=== PATIENT | male | born 1975 | race Caucasian/White ===

== ENCOUNTER 2023-01-21 06:34 | Outpatient (OUT) | payer OTHER, SELFPAY ==
[2023-01-21 06:58] LABS: Hematocrit 36.4 % (42.0-54.0); Hemoglobin 12.5 g/dL (14.0-18.0); Mean Corpuscular HGB Conc 34.3 g/dL (29.9-35.2); Mean Corpuscular Hemoglobin 30.6 pg (25.9-34.0); Mean Platelet Volume 10.4 fL (9.5-13.5); Platelet Count 248 10^3/uL (150-450); Red Blood Count 4.09 10^6/uL (4.70-6.10); Red Cell Distribution Width 12.5 % (11.0-15.0); White Blood Count 13.4 10^3/uL (4.0-11.0)
[2023-01-21 07:45] LABS: Alanine Aminotransferase 32 U/L (16-63); Albumin Globulin Ratio 1.2; Albumin Level 3.7 g/dL (3.4-5.0); Alkaline Phosphatase 42 U/L (46-116); Anion Gap 12.4; Aspartate Amino Transferase 18 U/L (15-37); BUN Creatinine Ratio 16.2; Bilirubin Total 1.3 mg/dL (0.2-1.0); Calcium 8.9 mg/dL (8.5-10.1); Carbon Dioxide 27.1 mmol/L (21.0-32.0); Chloride 103 mmol/L (98-107); Chol HDL Ratio 3.9; Cholesterol 153 mg/dL (<=200); Estimated GFR (African America >60 (>=60); Estimated GFR (Non-African Ame >60 (>=60); Globulin 3.2 g/dL; Glucose 84 mg/dL (74-106); HDL Cholesterol 39 mg/dL (40-60); Potassium 3.5 mmol/L (3.5-5.1); Sodium 139 mmol/L (136-145); Total Protein 6.9 g/dL (6.4-8.2); Triglycerides 113 mg/dL (<=150); Uric Acid 5.2 mg/dL (3.5-7.2); VLDL CHOLESTEROL 22.6 mg/dL
[2023-01-21 07:49] LABS: Lymphocytes Absolute Manual 6.16 10^3/uL (1.20-3.80); Monocytes Absolute Manual 0.67 10^3/uL (0.30-0.80); Segmented Neut Absolute Manual 6.16 10^3/uL (1.4-6.5)
[2023-01-21 07:55] LABS: Estimated Average Glucose 111 mg/dL; Glycohemoglobin A1C 5.5 % (4.5-6.2)
[2023-01-21 08:30] LABS: Prostate Specific Antigen Scrn 0.25 ng/mL (<=4.00)
[2023-01-22 11:09] LABS: Insulin 5.7 uIU/mL (2.6-24.9)
== END 2023-01-21 06:35 | disposition home or self-care (01) ==
LOC: LAB 06:38
PROVIDERS: PCP Nurse Practitioner Family; Visit Provider Nurse Practitioner Family
DX: Z00.00 Encounter for general adult medical examination without abnormal findings (principal); Z12.5 Encounter for screening for malignant neoplasm of prostate
CPT/HCPCS: 36415; 80053; 80061; 83036; 83525; 84550; 85027; G0103

== ENCOUNTER 2023-10-05 14:49 | Outpatient (OUT) | payer OTHER, SELFPAY ==
--- NOTE | 2023-10-05 14:51 | CT_ITS ---
The [address] [address] Patient Name: MARCELO LOCKHART MRN: [id number] date: 1975 Sex: M Assigned Patient Location: CT Current Patient Location: Accession/Order Number: [id number] Exam Date: 10/05/2023 14:55 Report Date: 10/06/2023 04:06 At the request of: STACIA WONG Procedure: CT sinus wo con EXAM: CT sinus wo con HISTORY: Chronic Sinus Complaints R09.89 INDICATION: 47 years old; Male. TECHNIQUE: CT examination of the paranasal sinuses. Axial, coronal and sagittal reformats were reviewed. IV contrast (Isovue-370): None. Ionizing radiation dose reduced via iterative reconstruction/FBP blend and body size kV/mA adjustment. COMPARISON: None FINDINGS: POSTOPERATIVE CHANGES: None. ANTERIOR COMPARTMENT: Frontal sinuses: Almost complete opacification the left. Thickening on the right. Anterior ethmoid air cells: Thickening bilaterally. Worse on the left than the right. Frontoethmoidal recesses: Patent bilaterally. Maxillary sinus: Thickening with cyst or polyp formation bilaterally. Ostiomeatal units: Patent bilaterally. POSTERIOR COMPARTMENT: Sphenoid sinuses: Thickening bilaterally. Posterior ethmoid air cells: Thickening bilaterally. Sphenoethmoidal recesses: Patent bilaterally. NASAL CAVITY: Nasal turbinates: Normal in appearance. Nasal septum: Position of the midline. Small spur projects to the right. Olfactory recess: Clear. DEVELOPMENTAL ANOMALIES: Fovea ethmoidalis: Symmetric. Vertical petrous carotid arteries: Covered by bone. Optic nerves: The optic nerves projecting to the superior aspect of the sphenoid sinuses but are covered by bone. MISCELLANEOUS: Globes, orbits, and visualized brain: No orbital masses are appreciated. Only a portion of the brain is included. No mass effect is seen. Incidental note is made of a cavum septum pellucidum and vergae. This study cannot exclude all brain pathology. Visualized cervical spine: Only the C1-2 articulation is visible. Predental space is normal. The study is not clear the cervical spine. OTHER: None. CT/CT sinus wo con IMPRESSION: 1. Pansinus thickening. No fluid levels. 2. Ostiomeatal complexes, frontoethmoidal recesses, and sphenoethmoidal recesses are patent. Electronically authenticated by: SANDRA SHARP Date: 10/06/2023 04:06
--- OUTSIDE RECORDS SUMMARY | 2023-10-05 14:54 | XMS_ITS | CCD ---
Author Organization [facility] Care Team Providers Care Delivery Room Clerk Name Role Phone Vitor RITCHIE, Ayan Primary Care Provider MISC, DOCTOR Admitting Unavailable MISC, DOCTOR Attending Unavailable MISC, DOCTOR Consulting Unavailable MISC, DOCTOR Admitting Unavailable MISC, DOCTOR Attending Unavailable MISC, DOCTOR Consulting Unavailable Vitor RITCHIE, Ayan Primary Care Provider [phone] AYAN ADLER Referring Unavailable AYAN ADLER Primary Care Unavailable AYAN ADLER Primary Care Unavailable RIVERA KAUR Attending Unavailable Medications Current Medications Medication Drug Class(es) Dates Sig (Normalized) Sig (Original) baclofen 10 mg oral tablet (1 source) gamma-Aminobutyric Acid-ergic Agonist Start: 2 baclofen (LIORESAL) 10 MG tablet 2 tablets 3 times a day as needed for spasm 30 tablet 0 08/28/2021 Active doxycycline hyclate 100 mg oral capsule (1 source) Tetracycline-class Drug take 1 capsule by mouth twice daily doxycycline hyclate (VIBRAMYCIN) 100 MG capsule Take 100 mg by mouth 2 times daily 0 Active ketorolac tromethamine 10 mg oral tablet (1 source) Nonsteroidal Anti-inflammatory Drug, Cyclooxygenase Inhibitor Start: 2 take 1 tablet by mouth every eight hours as needed for pain ketorolac (TORADOL) 10 MG tablet Take 1 tablet by mouth every 8 hours as needed for Pain 15 tablet 0 08/28/2021 Active methylPREDNISolone 4 mg oral tablet (1 source) Corticosteroid methylPREDNISolo ne (MEDROL, JOSE,) 4 MG tablet Take 4 mg by mouth See Admin Instructions Take by mouth. 0 Active Problems Active Problems Problem Classification Problem Date Documented Date Episodic/Chronic Diseases of white blood cells (2 sources) Lymphocytosis (symptomatic); Translations: [Lymphocytosis (symptomatic)] Onset: 01-15-2022 Chronic Other lower respiratory disease (1 source) Snoring; Translations: [SNORING] Onset: 11-26-2021 Episodic Other nutritional; endocrine; and metabolic disorders (2 sources) Lipoprotein deficiency; Translations: [Lipoprotein deficiency] Onset: 01-15-2022 Chronic Residual codes; unclassified (4 sources) Obstructive sleep apnea (adult) (pediatric); Translations: [OBSTRUCTIVE SLEEP APNEA] Onset: 11-24-2021 Chronic Past or Other Problems Problem Classification Problem Date Documented Da te Episodic/Chronic Spondylosis; intervertebral disc disorders; other back problems (2 sources) Backache; Translations: [Back Pain] Onset: 08-28-2021 Episodic Results Test Name Value Interpretation Reference Range Facility Prost Spec Ag,Freeon 022 PSA, Free <0.1 Normal [facility] Comment on above: Performed By: #### P SAF, FT4, LIPR ####[address] [id number] Lab Director: Nir Mckeon MD#### CK, CP, MG, URI, CDP, TSH ####[address] [place] [address] lab Director: James Fay MD PSA, Percent Free 20.0 % Normal [facility] Comment on above: Result Comment: The free PSA percentage is an aid in distinguishing prostate cancer from benign prostatic conditions in men age 50 and older with a total PSA between 3 and 10 ng/mL and negative digital rectal examination findings. Performed By: #### P SAF, FT4, LIPR ####[facility] [id number] [place], [place] [address] Lab Director: Nir Mckeon MD#### CK, CP, MG, URI, CDP, TSH ####[address] [place] [address] lab Director: James Fay MD Prostatic Spec. Ag 0.2 ug/L Normal 0.0-4.0 [facility] Comment on above: Result Comment: Siem[employer]ite 2000 immunometric chemiluminescent assay is used. Results obtained with different assay methods or instruments cannot be used interchangeably. Performed By: #### P SAF, FT4, LIPR ####[facility] [id number] [place] [address] Lab Director: Nir Mckeon MD#### CK, CP, MG, URI, CDP, TSH ####[address] [place], [place] [id number] Lab Director: James Fay MD Lipid Profileon 01-16-2022 Cholesterol [Mass/Vol] 146 mg/dL Normal <200 [facility] Comment on above: Result Comment: Cholesterol Guidelines: <200 Desirable 200-240 Borderline >240 Undesirable Performed By: #### P SAF, FT4, LIPR #### [id number] [place] [address] Motorboat Mechanic: Nir Mckeon MD #### CK, CP, MG, URI, CDP, TSH #### [address] [place] [address] Motorboat Mechanic: James Fay MD Cholesterol in HDL [Mass/Vol] 37 mg/dL Low >40 [facility] Comment on above: Result Comment: HDL Guidelines: <40 Undesirable 40-59 Borderline >59 Desirable Performed By: #### P SAF, FT4, LIPR #### [id number] [place], [place] [id number] Motorboat Mechanic: Nir Mckeon MD #### CK, CP, MG, URI, CDP, TSH #### [address] [place] [address] Motorboat Mechanic: James Fay MD Cholesterol in LDL [Mass/Vol] 97 mg/dL Normal 0-130 [facility] Comment on above: Result Comment: LDL Guidelines: <100 Desirable 100-129 Near to/above Desirable 130-159 Borderline >159 Undesirable Direct (measured) LDL and calculated LDL are not interchangeable tests. Performed By: #### P SAF, FT4, LIPR #### [address] [address] Motorboat Mechanic: Nir Mckeon MD #### CK, CP, MG, URI, CDP, TSH #### [address] [place] [address] Motorboat Mechanic: James Fay MD Cholesterol.total/Choles terol in HDL [Mass ratio] 3.9 {ratio} Normal <5 [facility] Comment on above: Performed By: #### P SAF, FT4, LIPR #### [address] [address] Motorboat Mechanic: Nir Mckeon MD #### CK, CP, MG, URI, CDP, TSH #### [address] [place] [address] Motorboat Mechanic: James Fay MD Triglyceride [Mass/Vol] 60 mg/dL Normal <150 [facility] Comment on above: Result Comment: Triglyceride Guidelines: <150 Desirable 150-199 Borderline 200-499 High >499 Very high Based on AHA Guidelines for fasting triglyceride, December 2011. Performed By: #### P SAF, FT4, LIPR #### [address] [address] Motorboat Mechanic: Nir Mckeon MD #### CK, CP, MG, URI, CDP, TSH #### [address] [place] [address] Motorboat Mechanic: James Fay MD Thyroxine, Freeon 01-16-2022 Thyroxine, Free 1.18 ng/dL Normal 0.93-1.70 [facility] Comment on above: Performed By: #### P SAF, FT4, LIPR #### [address] [address] Motorboat Mechanic: Nir Mckeon MD #### CK, CP, MG, URI, CDP, TSH #### [address] [place] [address] Motorboat Mechanic: James Fay MD CBC with Auto Differentialon 01-15-2022 Absolute Eos # 0.08 [facility] [facility] Absolute Immature Granulocyte [facility] Absolute Lymph # 0.96 Low [facility] Absolute [place] # 0.51 [facility] Basophils (Bld) [#/Vol] 0.06 10*3/uL [facility] Basophils/100 WBC (Bld) 1 % 0 - 2 % [facility] Eosinophils/100 WBC (Bld) 1 % 1 - 4 % [facility] Hematocrit (Bld) [Volume fraction] 38.1 % Low 40.7 - 50.3 % [facility] Hemoglobin (Bld) [Mass/Vol] 12.9 g/dL Low 13.0 - 17.0 g/dL [facility] Immature granulocytes/100 WBC (Bld) 0 % 0 [facility] Interpretation and review of laboratory results Abnormal [facility] Lymphocytes/100 WBC (Bld) 15 % Low 24 - 43 % [facility] MCH (RBC) [Entitic mass] 30.3 pg 25. 2 - 33.5 pg [facility] MCHC (RBC) [Mass/Vol] 33.9 g/dL 28.4 - 34.8 g/dL [facility] MCV (RBC) [Entitic vol] 89.4 fL 82.6 - 102.9 fL [facility] Monocytes/100 WBC (Bld) 8 % 3 - 12 % [facility] NRBC Automated 0.0 0.0 per 100 WBC [facility] Platelet distribution width (Bld) [Ratio] 12.2 % 11.8 - 14.4 % [facility] Platelet mean volume (Bld) [Entitic vol] 10.7 fL 8.1 - 13.5 fL [facility] Platelets (Bld) [#/Vol] 154 10*3/uL [facility] RBC (Bld) [#/Vol] 4.26 10*6/uL 4.21 - 5.7 7 m/uL [facility] Segmented neutrophils/100 WBC (Bld) 75 % High 36 - 65 % [facility] Segs Absolute 4.69 [facility] WBC (Bld) [#/Vol] 6.3 10*3/uL [facility] CBC with Diffon 01-15-2022 Abs. Basophil 0.06 k/uL Normal 0.00-0.20 [facility] Comment on above: Performed By: #### P SAF, FT4, LIPR #### [address] [address] Motorboat Mechanic: Nir Mckeon MD #### CK, CP, MG, URI, CDP, TSH #### [facility] [address] [place] [address] [place] [phone] Motorboat Mechanic: James Fay MD Abs.Imm.Granulocyte <0.03 Normal 0.00-0.30 [facility] Comment on above: Performed By: #### P SAF, FT4, LIPR #### [address] [id number] Motorboat Mechanic: Nir Mckeon MD #### CK, CP, MG, URI, CDP, TSH #### [facility] [address] [place] [address] [place] [phone] Motorboat Mechanic: James Fay MD Abs.Neutrophil (Seg) 4.69 k/uL Normal 1.50-8.10 [facility] Comment on above: Performed By: #### P SAF, FT4, LIPR #### [address] [id number] Motorboat Mechanic: Nir Mckeon MD #### CK, CP, MG, URI, CDP, TSH #### [facility] [address] [place] [address] Dr. [place] [phone] Motorboat Mechanic: James Fay MD Basophils/100 WBC (Bld) 1 % Normal 0-2 [facility] Comment on above: Performed By: #### P SAF, FT4, LIPR #### [address] [id number] Motorboat Mechanic: Nir Mckeon MD #### CK, CP, MG, URI, CDP, TSH #### [address] [place] [phone] Motorboat Mechanic: James Fay MD Eosinophils (Bld) [#/Vol] 0.08 10*3/uL Normal 0.00-0.44 [facility] Comment on above: Performed By: #### P SAF, FT4, LIPR #### [place] [address] Motorboat Mechanic: Nir Mckeon MD #### CK, CP, MG, URI, CDP, TSH #### [address] [place] [phone] ( Motorboat Mechanic: James Fay MD Eosinophils/100 WBC (Bld) 1 % Normal 1-4 [facility] Comment on above: Performed By: #### P SAF, FT4, LIPR #### [place] [address] Motorboat Mechanic: Nir Mckeon MD #### CK, CP, MG, URI, CDP, TSH #### [address] [place] [phone] Motorboat Mechanic: James Fay MD Erythrocyte distribution width (RBC) [Ratio] 12.2 % Normal 11.8-14.4 [facility] Comment on above: Performed By: #### P SAF, FT4, LIPR #### [place] [address] Motorboat Mechanic: Nir Mckeon MD #### CK, CP, MG, URI, CDP, TSH #### [address] [place] [id number] Motorboat Mechanic: James Fay MD Hematocrit (Bld) [Volume fraction] 38.1 % Low 40.7-50.3 [facility] Comment on above: Performed By: #### P SAF, FT4, LIPR #### [address] [id number] Motorboat Mechanic: Nir Mckeon MD #### CK, CP, MG, URI, CDP, TSH #### [address] [place] [phone] Motorboat Mechanic: James Fay MD Hemoglobin (Bld) [Mass/Vol] 12.9 g/dL Low 13.0-17.0 [facility] Comment on above: Performed By: #### P SAF, FT4, LIPR #### [place] [address] Motorboat Mechanic: Nir Mckeon MD #### CK, CP, MG, URI, CDP, TSH #### [address] [place] [phone] Motorboat Mechanic: James Fay MD Immature granulocytes/100 WBC (Bld) 0 % Normal 0 [facility] Comment on above: Performed By: #### P SAF, FT4, LIPR #### [place] [address] Motorboat Mechanic: Nir Mckeon MD #### CK, CP, MG, URI, CDP, TSH #### [address] [place] [phone] Motorboat Mechanic: James Fay MD Lymphocytes (Bld) [#/Vol] 0.96 10*3/uL Low 1.10-3.70 [facility] Comment on above: Performed By: #### P SAF, FT4, LIPR #### [place] [id number] Motorboat Mechanic: Nir Mckeon MD #### CK, CP, MG, URI, CDP, TSH #### [address] [place] [phone] Motorboat Mechanic: James Fay MD Lymphocytes/100 WBC (Bld) 15 % Low 24-43 [facility] Comment on above: Performed By: #### P SAF, FT4, LIPR #### [place] [id number] Motorboat Mechanic: Nir Mckeon MD #### CK, CP, MG, URI, CDP, TSH #### [address] [place] [phone] Motorboat Mechanic: James Fay MD MCH (RBC) [Entitic mass] 30.3 pg Normal 25.2-33.5 [facility] Comment on above: Performed By: #### P SAF, FT4, LIPR #### [place] [address] Motorboat Mechanic: Nir Mckeon MD #### CK, CP, MG, URI, CDP, TSH #### [address] [place] [phone] Motorboat Mechanic: James Fay MD MCHC (RBC) [Mass/Vol] 33.9 g/dL Normal 28.4-34.8 [place] Comment on above: Performed By: #### P SAF, FT4, LIPR #### [address] [id number] Motorboat Mechanic: Nir Mckeon MD #### CK, CP, MG, URI, CDP, TSH #### [address] [place] [address] Motorboat Mechanic: James Fay MD MCV (RBC) [Entitic vol] 89.4 fL Normal 82.6-102.9 [facility] Comment on above: Performed By: #### P SAF, FT4, LIPR #### [address] [address] Motorboat Mechanic: Nir Mckeon MD #### CK, CP, MG, URI, CDP, TSH #### [address] [place] [phone] Motorboat Mechanic: James Fay MD Monocytes (Bld) [#/Vol] 0.51 10*3/uL Normal 0.10-1.20 [facility] Comment on above: Performed By: #### P SAF, FT4, LIPR #### [place] [address] Motorboat Mechanic: Nir Mckeon MD #### CK, CP, MG, URI, CDP, TSH #### [address] [place] [phone] ( Motorboat Mechanic: James Fay MD Monocytes/100 WBC (Bld) 8 % Normal 3-12 [facility] Comment on above: Performed By: #### P SAF, FT4, LIPR #### [place] [address] Motorboat Mechanic: Nir Mckeon MD #### CK, CP, MG, URI, CDP, TSH #### [address] [place] [phone] Motorboat Mechanic: James Fay MD Neutrophil (Seg) 75 % High 36-65 [facility] Comment on above: Performed By: #### P SAF, FT4, LIPR #### [address] [address] Motorboat Mechanic: Nir Mckeon MD #### CK, CP, MG, URI, CDP, TSH #### [address] [place] [phone] Motorboat Mechanic: James Fay MD NRBC Automated 0.0 per 100 WBC Normal 0.0 [facility] Comment on above: Performed By: #### P SAF, FT4, LIPR #### [place] [address] Motorboat Mechanic: Nir Mckeon MD #### CK, CP, MG, URI, CDP, TSH #### [address] [place] [phone] ( Motorboat Mechanic: James Fay MD Platelet mean volume (Bld) [Entitic vol] 10.7 fL Normal 8.1-13.5 [facility] Comment on above: Performed By: #### P SAF, FT4, LIPR #### [place] [address] Motorboat Mechanic: Nir Mckeon MD #### CK, CP, MG, URI, CDP, TSH #### [address] [place] [phone] ( Motorboat Mechanic: James Fay MD Platelets (Bld) [#/Vol] 154 10*3/uL Normal 138-453 [facility] Comment on above: Performed By: #### P SAF, FT4, LIPR #### [place] [address] Motorboat Mechanic: Nir Mckeon MD #### CK, CP, MG, URI, CDP, TSH #### [address] [place] [phone] Motorboat Mechanic: James Fay MD RBC (Bld) [#/Vol] 4.26 10*6/uL Normal 4.21-5.77 [facility] Comment on above: Performed By: #### P SAF, FT4, LIPR #### [place] [address] Motorboat Mechanic: Nir Mckeon MD #### CK, CP, MG, URI, CDP, TSH #### [facility] [address] [place] [address] Motorboat Mechanic: James Fay MD WBC (Bld) [#/Vol] 6.3 10*3/uL Normal 3.5-11.3 [facility] Comment on above: Performed By: #### P SAF, FT4, LIPR #### [facility] [address] [place], [place] [phone] Motorboat Mechanic: Nir Mckeon MD #### CK, CP, MG, URI, CDP, TSH #### [address] [place] [address] Motorboat Mechanic: James Fay MD CKon 01-15-2022 CK [Catalytic activity/Vol] 329 U/L High 39 - 308 U/L [facility] Comp Metabolic Profon 2021 Albumin [Mass/Vol] 4.2 g/dL Normal 3.5-5.2 [facility] Comment on above: Performed By: #### P SAF, FT4, LIPR #### [address] [address] Motorboat Mechanic: Nir Mckeon MD #### CK, CP, MG, URI, CDP, TSH #### [address] [place] [address] Motorboat Mechanic: James Fay MD Albumin/Glob Ratio 1.6 Normal 1.0-2.5 [facility] Comment on above: Performed By: #### P SAF, FT4, LIPR #### [facility] [address] [place], [place] [phone] Motorboat Mechanic: Nir Mckeon MD #### CK, CP, MG, URI, CDP, TSH #### [facility] [address] [place] [address] [place] [address] Motorboat Mechanic: James Fay MD Alkaline Phos 49 U/L Normal 40-129 [facility] Comment on above: Performed By: #### P SAF, FT4, LIPR #### [address] [address] Motorboat Mechanic: Nir Mckeon MD #### CK, CP, MG, URI, CDP, TSH #### [address] [place] [phone] Motorboat Mechanic: James Fay MD ALT [Catalytic activity/Vol] 42 U/L High 5-41 [facility] Comment on above: Performed By: #### P SAF, FT4, LIPR #### [place] [address] Motorboat Mechanic: Nir Mckeon MD #### CK, CP, MG, URI, CDP, TSH #### [address] [place] [phone] ( Motorboat Mechanic: James Fay MD Anion gap [Moles/Vol] 9 mmol/L Normal 9-17 [place] Comment on above: Performed By: #### P SAF, FT4, LIPR #### [address] [address] Motorboat Mechanic: Nir Mckeon MD #### CK, CP, MG, URI, CDP, TSH #### [address] [place] [phone] Motorboat Mechanic: James Fay MD AST [Catalytic activity/Vol] 30 U/L Normal <40 [facility] Comment on above: Performed By: #### P SAF, FT4, LIPR #### [address] [phone] Motorboat Mechanic: Nir Mckeon MD #### CK, CP, MG, URI, CDP, TSH #### [address] [place] [phone] Motorboat Mechanic: James Fay MD Bilirubin [Mass/Vol] 0.9 mg/dL Normal 0.3-1.2 [facility] Comment on above: Performed By: #### P SAF, FT4, LIPR #### [address] [phone] Motorboat Mechanic: Nir Mckeon MD #### CK, CP, MG, URI, CDP, TSH #### [address] [place] [phone] Motorboat Mechanic: James Fay MD BUN/CRE Ratio 15 Normal 9-20 [facility] Comment on above: Performed By: #### P SAF, FT4, LIPR #### [address] [id number] Motorboat Mechanic: Nir Mckeon MD #### CK, CP, MG, URI, CDP, TSH #### [address] [place] [phone] Motorboat Mechanic: James Fay MD Calcium [Mass/Vol] 9.3 mg/dL Normal 8.6-10.4 [facility] Comment on above: Performed By: #### P SAF, FT4, LIPR #### [address] [id number] Motorboat Mechanic: Nir Mckeon MD #### CK, CP, MG, URI, CDP, TSH #### [address] [place] [phone] Motorboat Mechanic: James Fay MD Chloride [Moles/Vol] 103 mmol/L Normal 98-107 [facility] Comment on above: Performed By: #### P SAF, FT4, LIPR #### [address] [id number] Motorboat Mechanic: Nir Mckeon MD #### CK, CP, MG, URI, CDP, TSH #### [address] [place] [address] Motorboat Mechanic: James Fay MD CO2 [Moles/Vol] 26 mmol/L Normal 20-31 [facility] Comment on above: Performed By: #### P SAF, FT4, LIPR #### [address] [id number] Motorboat Mechanic: Nir Mckeon MD #### CK, CP, MG, URI, CDP, TSH #### [address] [place] [address] Motorboat Mechanic: James Fay MD Creatinine [Mass/Vol] 0.82 mg/dL Normal 0.70-1.20 [place] Comment on above: Performed By: #### P SAF, FT4, LIPR #### [address] [id number] Motorboat Mechanic: Nir Mckeon MD #### CK, CP, MG, URI, CDP, TSH #### [address] [place] [address] Motorboat Mechanic: James Fay MD GFR/1.73 sq M.predicted among non-blacks MDRD (S/P/Bld) [Vol rate/Area] mL/min/{1.73_m2} Normal >60 [facility] Comment on above: Result Comment: Effective Dec 07, 2021 These results are not intended for use in patients <18 years of age. eGFR results are calculated without a race factor using the 2020 CKD-EPI equation. Careful clinical correlation is recommended, particularly when comparing to results calculated using previous equations. The CKD-EPI equation is less accurate in patients with extremes of muscle mass, extra-renal metabolism of creatine, excessive creatine ingestion, or following therapy that affects renal tubular secretion. Performed By: #### P SAF, FT4, LIPR #### [address] [id number] Motorboat Mechanic: Nir Mckeon MD #### CK, CP, MG, URI, CDP, TSH #### [address] [place] [address] Motorboat Mechanic: James Fay MD Glucose [Mass/Vol] 113 mg/dL High 70-99 [facility] Comment on above: Performed By: #### P SAF, FT4, LIPR #### [address] [id number] Motorboat Mechanic: Nir Mckeon MD #### CK, CP, MG, URI, CDP, TSH #### [address] [place] [address] Motorboat Mechanic: James Fay MD Potassium [Moles/Vol] 4.1 mmol/L Normal 3.7-5.3 [place] Comment on above: Performed By: #### P SAF, FT4, LIPR #### [address] [id number] Motorboat Mechanic: Nir Mckeon MD #### CK, CP, MG, URI, CDP, TSH #### [address] [place] [address] Motorboat Mechanic: James Fay MD Protein [Mass/Vol] 6.8 g/dL Normal 6.4-8.3 [facility] Comment on above: Performed By: #### P SAF, FT4, LIPR #### [address] [id number] Motorboat Mechanic: Nir Mckeon MD #### CK, CP, MG, URI, CDP, TSH #### [address] [place] [address] Motorboat Mechanic: James Fay MD Sodium [Moles/Vol] 138 mmol/L Normal 135-144 [facility] Comment on above: Performed By: #### P SAF, FT4, LIPR #### [address] [id number] Motorboat Mechanic: Nir Mckeon MD #### CK, CP, MG, URI, CDP, TSH #### [facility] [address] [place] [address] Motorboat Mechanic: James Fay MD Urea nitrogen [Mass/Vol] 12 mg/dL Normal 6-20 [facility] Comment on above: Performed By: #### P SAF, FT4, LIPR #### [facility] [address] [place], [place] [phone] Motorboat Mechanic: Nir Mckeon MD #### CK, CP, MG, URI, CDP, TSH #### [facility] [address] [place] [address] Motorboat Mechanic: James Fay MD Comprehensive Metabolic Pane [facility] 01-15-2022 Albumin [Mass/Vol] 4.2 g/dL 3.5 - 5.2 g/dL [facility] Albumin/Globulin [Mass ratio] 1.6 {ratio} 1.0 - 2.5 [facility] ALP (Bld) [Catalytic activity/Vol] 49 U/L 40 - 129 U/L [facility] ALT [Catalytic activity/Vol] 42 U/L High 5 - 41 U/L [facility] Anion gap [Moles/Vol] 9 mmol/L 9 - 17 mmol/L [facility] AST [Catalytic activity/Vol] 30 U/L NINF - 40 U/L [facility] Bilirubin [Mass/Vol] 0.9 mg/dL 0.3 - 1 .2 mg/dL [facility] Calcium [Mass/Vol] 9.3 mg/dL 8.6 - 10. 4 mg/dL [facility] Chloride [Moles/Vol] 103 mmol/L 98 - 10 7 mmol/L [facility] CO2 [Moles/Vol] 26 mmol/L 20 - 31 mmol/L [facility] Creatinine [Mass/Vol] 0.82 mg/dL 0.70 - 1.20 mg/dL [facility] GFR/1.73 sq M.predicted MDRD (S/P/Bld) [Vol rate/Area] - PINF [facility] Comment on above: Effective Dec 07, 2021 These results are not intended for use in patients <18 years of age. eGFR results are calculated without a race factor using the 2020 CKD-EPI equation. Careful clinical correlation is recommended, particularly when comparing to results calculated using previous equations. The CKD-EPI equation is less accurate in patients with extremes of muscle mass, extra-renal metabolism of creatine, excessive creatine ingestion, or following therapy that affects renal tubular secretion. Glucose [Mass/Vol] 113 mg/dL High 70 - 99 mg/dL [facility] Potassium [Moles/Vol] 4.1 mmol/L 3.7 - 5.3 mmol/L [facility] Protein [Mass/Vol] 6.8 g/dL 6.4 - 8.3 g/dL [facility] Sodium [Moles/Vol] 138 mmol/L 135 - 144 mmol/L [facility] Urea nitrogen (BldV) [Mass/Vol] 12 mg/dL 6 - 20 mg/dL [facility] Urea nitrogen/Creatinine (Bld) [Mass ratio] 15 9 - 20 [facility] Creatine Kinaseon 01-15-2022 CK [Catalytic activity/Vol] 329 U/L High 39-308 [facility] Comment on above: Performed By: #### P SAF, FT4, LIPR #### [facility] [address] [place] [address] Motorboat Mechanic: Nir Mckeon MD #### CK, CP, MG, URI, CDP, TSH #### [facility] [address] [place] [address] Motorboat Mechanic: James Fay MD Lipid Panelon 01-15-2022 Cholesterol [Mass/Vol] 146 mg/dL NINF - 200 mg/dL [facility] Comment on above: Cholesterol Guidelines: <200 Desirable 200-240 Borderline >240 Undesirable Cholesterol in HDL [Mass/Vol] 37 mg/dL Low 40 - PINF mg/dL [facility] Comment on above: HDL Guidelines: <40 Undesirable 40-59 Borderline >59 Desirable Cholesterol in LDL [Mass/Vol] 97 mg/dL 0 - 130 mg/dL [facility] Comment on above: LDL Guidelines: <100 Desirable 100-129 Near to/above Desirable 130-159 Borderline >159 Undesirable Direct (measured) LDL and calculated LDL are not interchangeable tests. Cholesterol.total/Choles terol in HDL [Mass ratio] 3.9 {ratio} NINF - 5 [facility] Interpretation and review of laboratory results Abnormal [facility] Triglyceride [Mass/Vol] 60 mg/dL NINF - 150 mg/dL [facility] Comment on above: Triglyceride Guidelines: <150 Desirable 150-199 Borderline 200-499 High >499 Very high Based on AHA Guidelines for fasting triglyceride, December 2011. [facility] Magnesiumon 01-15-2022 Magnesium [Mass/Vol] 1.7 mg/dL Normal 1.6-2.6 [facility] Comment on above: Performed By: #### P SAF, FT4, LIPR #### [facility] [address] [place] [address] Motorboat Mechanic: Nir Mckeon MD #### CK, CP, MG, URI, CDP, TSH #### [facility] [address] [place] [address] Motorboat Mechanic: James Fay MD Magnesium [Mass/Vol] 1.7 mg/dL 1.6 - 2 .6 mg/dL [facility] No Panel Informationon 01-15 Interpretation and review of laboratory results Abnormal [facility] T4, Freeon 01-15-2022 Thyroxine, Free 1.18 ng/dL 0.93 - 1.70 ng/dL [facility] TSHon 01-15-2022 TSH Qn 0.69 m[IU]/L [facility] Thyroid Stim. Horm.on 2021 Thyroid Stim. Horm. 0.69 uIU/mL Normal 0.30-5.00 [facility] Comment on above: Performed By: #### P SAF, FT4, LIPR #### [facility] [employer] [address] [place], [place] [id number] Motorboat Mechanic: Nir Mckeon MD #### CK, CP, MG, URI, CDP, TSH #### [facility] [address] [place] [address] Motorboat Mechanic: James Fay MD Uric Acidon 01-15-2022 Urate [Mass/Vol] 3.6 mg/dL Normal 3.4-7.0 [facility] Comment on above: Performed By: #### P SAF, FT4, LIPR #### [facility] [address] [place], [place] [id number] Motorboat Mechanic: Nir Mckeon MD #### CK, CP, MG, URI, CDP, TSH #### [facility] [address] [place] [address] Motorboat Mechanic: James Fay MD Urate [Mass/Vol] 3.6 mg/dL 3.4 - 7.0 mg/dL [facility] CT ABDOMEN PELVIS WO CONTRAS Ton 08-28-2021 CT ABDOMEN PELVIS WO CONTRAST EXAMINATION: CT OF THE ABDOMEN AND PELVIS WITHOUT CONTRAST 08/28/2021 12:51 pm TECHNIQUE: CT of the abdomen and pelvis was performed without the administration of intravenous contrast. Multiplanar reformatted images are provided for review. Automated exposure control, iterative reconstruction, and/or weight based adjustment of the mA/kV was utilized to reduce the radiation dose to as low as reasonably achievable. COMPARISON: None. 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 FINDINGS: Lower Chest: Mild bibasilar atelectasis and respiratory motion. No free intra-abdominal air. Organs: Liver, gallbladder, adrenal glands, pancreas, and spleen grossly unremarkable in appearance on noncontrast imaging. Punctate 1-2 mm nonobstructing lower pole and mid pole right-sided renal calculi. No obstructing calculus, hydronephrosis, or hydroureter. GI/Bowel: Mild stool burden. Mild colonic diverticulosis. No significant dilation of small bowel loops to suggest small bowel obstruction. Nonvisualization of the appendix. Pelvis: Urinary bladder is collapsed. No free fluid in the pelvis. No inguinal or pelvic sidewall lymphadenopathy. Pelvic phleboliths. Peritoneum/Retroperi toneum: Abdominal aorta normal in appearance and caliber. No retroperitoneal lymphadenopathy. Psoas muscles normal in size and symmetric in appearance. Bones/Soft Tissues: Mild diffuse degenerative changes throughout the spine. Multilevel Schmorl's node deformities. Moderate midline fat containing periumbilical hernia on image 94, series 2. IMPRESSION: 1. Punctate nonobstructing right-sided renal calculi. No obstructing calculus or hydronephrosis. 2. Nonvisualization of the appendix. 3. Mild colonic diverticulosis. Mild stool burden. 4. Moderate midline fat containing periumbilical hernia. Interpreted by: Antonio Bradley MD Signed by: Antonio Bradley MD 08/28/21 Final result Normal [facility] Urinalysis, Routineon 2021 Bilirubin, SemiQt,Ur Negative Normal NEG [facility] Comment on above: Performed By: #### U A #### [address] [place] [address] Motorboat Mechanic: James Fay MD Blood, Urine Negative Normal NEG [facility] Comment on above: Performed By: #### U A #### [facility] [address] [place] [address] [place] [address] Motorboat Mechanic: James Fay MD Clarity (U) Clear Normal CLEAR [facility] Comment on above: Performed By: #### U A #### [address] [place] [address] Motorboat Mechanic: James Fay MD Color (U) Yellow Normal YEL [facility] Comment on above: Performed By: #### U A #### [address] [place], [place] [id number] Motorboat Mechanic: James Fay MD Glucose Ql (U) Negative Normal NEG [facility] Comment on above: Performed By: #### U A #### [facility] [address] [place] [address] [place] [place], [place] [id number] Motorboat Mechanic: James Fay MD Ketones Ql (U) Negative Normal NEG [facility] Comment on above: Performed By: #### U A #### [facility] [address] [place] [address] [address] [place], [place] [phone] Motorboat Mechanic: James Fay MD Leukocyte esterase Test strip Ql (U) Negative Normal NEG [facility] Comment on above: Performed By: #### U A #### [facility] [address] [place] [address] [place] [address] Motorboat Mechanic: James Fay MD Nitrite,Ur Negative Normal NEG [facility] Comment on above: Performed By: #### U A #### [facility] [address] [place] [address] [place] [address] Motorboat Mechanic: James Fay MD PH,Ur 6.0 Normal 5.0-9.0 [facility] Comment on above: Performed By: #### U A #### [facility] [address] [place] [address] [address] [place], [place] [phone] Motorboat Mechanic: James Fay MD Protein Ql (U) Negative Normal NEG [facility] Comment on above: Performed By: #### U A #### [facility] [address] [place] [address] [address] [place], [place] [phone] Motorboat Mechanic: James Fay MD Spec. [place],Ur 1.020 Normal 1.010-1.020 [facility] Comment on above: Performed By: #### U A #### [facility] [address] [place] [address] [place], [place] [phone] Motorboat Mechanic: James Fay MD Urobilinogen,Ur Normal Normal NORM [facility] Comment on above: Performed By: #### U A #### [facility] [address] [place] [address] Motorboat Mechanic: James Fay MD C-Reactive ProteinOrdered By : Karri Sams on 01-03-2021 CRP [Mass/Vol] mg/L 0.0 - 5.0 mg/L [facility] [employer] Work Phone: [facility] [employer] Work Phone: CBC Auto DifferentialOrdered By: Karri Sams on 01-03-2021 Absolute Eos # 0.20 [facility] Work Phone: Absolute Immature Granulocyte <0.03 [facility] [employer] Work Phone: Absolute Lymph # 2.82 [facility] Work Phone: Absolute [place] # 0.55 [facility] Work Phone: Basophils (Bld) [#/Vol] 0.07 10*3/uL [facility] [employer] Work Phone: Basophils/100 WBC (Bld) 1 % 0 - 2 % M [facility] [employer] Work Phone: Differential Type NOT REPORTED [facility] [employer] Phone: Eosinophils/100 WBC (Bld) 3 % 1 - 4 % [facility] [employer] Work Phone: Hematocrit (Bld) [Volume fraction] 41.0 % 40.7 - 50.3 % [facility] [employer] Work Phone: Hemoglobin.gastrointesti nal spec 1 Ql (Stl) 13.6 g/dL 13.0 - 17.0 g/dL [facility] [employer] Work Phone: Immature granulocytes/100 WBC (Bld) 0 % 0 [facility] [employer] Work Phone: Lymphocytes/100 WBC (Bld) 41 % 24 - 43 % [facility] [employer] Work Phone: MCH (RBC) [Entitic mass] 29.8 pg 25. 2 - 33.5 pg [employer] Phone: MCHC (RBC) [Mass/Vol] 33.2 g/dL 28.4 - 34.8 g/dL [employer] Phone: MCV (RBC) [Entitic vol] 89.7 fL 82.6 - 102.9 fL [employer] Phone: Monocytes/100 WBC (Bld) 8 % 3 - 12 % [facility] Work Phone: NRBC Automated 0.0 0.0 per 100 WBC [employer] Phone: Platelet distribution width (Bld) [Ratio] 12.6 % 11.8 - 14.4 % [employer] Phone: Platelet Estimate NOT REPORTED [employer] Phone: Platelet mean volume (Bld) [Entitic vol] 10.5 fL 8.1 - 13.5 fL [employer] Phone: Platelets (Bld) [#/Vol] 253 10*3/uL [employer] Phone: RBC (Bld) [#/Vol] 4.57 10*6/uL 4.21 - 5.7 7 m/uL [employer] Phone: RBC (Bld) [#/Vol] NOT REPORTED [employer] Phone: Segmented neutrophils/100 WBC (Bld) 47 % 36 - 65 % [email or web address] Work Phone: Segs Absolute 3.18 [facility] Work Phone: WBC (Bld) [#/Vol] 6.8 10*3/uL [email or web address] Work Phone: WBC (Bld) [#/Vol] NOT REPORTED [employer] Phone: Comprehensive Metabolic Pane lOrdered By: Karri Sams on 01-03-2021 Albumin [Mass/Vol] 4.4 g/dL 3.5 - 5.2 g/dL [employer] Phone: Albumin/Globulin [Mass ratio] 1.8 {ratio} [employer] Phone: ALP (Bld) [Catalytic activity/Vol] 51 U/L 40 - 129 U/L [employer] Phone: ALT [Catalytic activity/Vol] 43 U/L High 5 - 41 U/L [employer] Phone: Anion gap [Moles/Vol] 8 mmol/L Low 9 - 17 mmol/L [employer] Phone: AST [Catalytic activity/Vol] 22 U/L <40 [employer] Phone: Bilirubin [Mass/Vol] 1.00 mg/dL 0.3 - 1 .2 mg/dL [employer] Phone: Calcium [Mass/Vol] 9.6 mg/dL 8.6 - 10. 4 mg/dL [employer] Phone: Chloride [Moles/Vol] 103 mmol/L 98 - 10 7 mmol/L [employer] Phone: CO2 [Moles/Vol] 26 mmol/L 20 - 31 mmol/L [employer] Phone: Creatinine [Mass/Vol] 0.81 mg/dL 0.70 - 1.20 mg/dL [employer] Phone: Free PSA/Total PSA [Mass fraction] 6.9 g/dL 6.4 - 8.3 g/dL [employer] Phone: GFR >60 >60 mL/min [employer] Phone: GFR Non- >60 >60 mL/min [employer] Phone: Glucose [Mass/Vol] 113 mg/dL High 70 - 99 mg/dL [facility] [employer] Work Phone: Interpretation and review of laboratory results Abnormal [facility] [employer] Phone: Potassium [Moles/Vol] 4.4 mmol/L 3.7 - 5.3 mmol/L [facility] [employer] Phone: Sodium [Moles/Vol] 137 mmol/L 135 - 144 mmol/L [facility] [employer] Phone: Urea nitrogen (BldV) [Mass/Vol] 10 mg/dL 6 - 20 mg/dL [facility] [employer] Phone: Urea nitrogen/Creatinine (Bld) [Mass ratio] 12 [facility] [employer] Work Phone: FerritinOrdered By: Karri Sams on 01-03-2021 Ferritin 108 ug/L 30 - 400 ug/L [facility] [employer] Work Phone: HaptoglobinOrdered By: Zoie Sams on 01-03-2021 Haptoglobin 61 mg/dL 30 - 200 mg/dL [facility] [employer] Phone: Iron and TIBCOrdered By: Zhang Sams on 01-03-2021 Iron [Mass/Vol] 151 ug/dL 59 - 158 ug/dL [facility] [employer] Phone: Iron Saturation 49 % 20 - 55 % [facility] Work Phone: TIBC 309 ug/dL 250 - 450 ug/dL [facility] [employer] Work Phone: UIBC 158 ug/dL 112 - 347 ug/dL [facility] [employer] Phone: Laboratory - Chemistry and C hemistry - challengeOrdered By: Karri Sams on 01-03-2021 GFR/1.73 sq M.predicted MDRD (S/P/Bld) [Vol rate/Area] [facility] Center[facility] Phone: Comment on above: Average GFR for 40-4 9 years old: 99 mL/min/1.73sq m Chronic Kidney Disease: <60 mL/min/1.73sq m Kidney failure: <15 mL/min/1.73sq m eGFR calculated using average adult body mass. Additional eGFR calculator available at: http://www.[employer]/multiple_crcl_2012.htm Stage 1: Some kidney damage normal GFR Stage 2: Mild kidney damage GFR 60-89 Stage 3: Moderate kidney damage GFR 30-59 Stage 4: Severe kidney damage GFR 15-29 Stage 5: Severe kidney damage GFR <15 ESRD - chronic treatment by dialysis or transplant Lactate DehydrogenaseOrdered By: Karri Sams on 01-03-2021 LD 190 U/L 135 - 225 U/L [employer] Work Phone: No Panel InformationOrdered By: Karri Sams on 01-03-2021 [employer] Phone: [employer] Phone: [email or web address] Work Phone: [email or web address] Work Phone: ReticulocytesOrdered By: Zhang Sams on 01-03-2021 Absolute Retic # 0.060 [facility] Center[facility] Work Phone: Immature Retic Fract 5.4 % 2.7 - 18.3 % [facility] [employer] Work Phone: Retic % 1.3 % 0.5 - 1.9 % [facility] Phone: Retic Hemoglobin 35.0 pg 28.2 - 35.7 pg [facility] CenterAIN[facility] - Financial Reconciliation Work Phone: Sedimentation RateOrdered By : Karri Sams on 01-03-2021 Sed Rate 7 mm 0 - 20 mm [facility] Phone: [employer] Phone: TransferrinOrdered By: Zoie Sams on 01-03-2021 Transferrin [Mass/Vol] 268 mg/dL 200 - 360 mg/dL [employer] Phone: Vitamin B12 & FolateOrdered By: Karri Sams on 01-03-2021 Cobalamin (Vitamin B12) [Mass/Vol] 521 pg/mL 232 - 1245 pg/mL [email or web address] Work Phone: Folate 16.3 ng/mL >4.8 [email or web address] Work Phone: [email or web address] Work Phone: CBC Auto DifferentialOrdered By: Ayan Adler on 08-09-2020 [employer] # 0.23 [facility] Work Phone: Absolute Immature Granulocyte <0.03 [email or web address] Work Phone: Absolute Lymph # 3.73 High [facility] Work Phone: Absolute [place] # 0.69 [facility] Work Phone: Basophils (Bld) [#/Vol] 0.08 10*3/uL [email or web address] Work Phone: Basophils/100 WBC (Bld) 1 % 0 - 2 % M [facility] Reconciliation Work Phone: Differential Type NOT REPORTED [employer] Phone: Eosinophils/100 WBC (Bld) 3 % 1 - 4 % [facility] - [facility]conciliation Work Phone: Hematocrit (Bld) [Volume fraction] 41.3 % 40.7 - 50.3 % [facility] Phone: Hemoglobin.gastrointesti nal spec 1 Ql (Stl) 13.9 g/dL 13.0 - 17.0 g/dL [employer] Phone: Immature granulocytes/100 WBC (Bld) 0 % 0 [email or web address] Work Phone: Interpretation and review of laboratory results Abnormal [employer] Phone: Lymphocytes/100 WBC (Bld) 47 % High 24 - 43 % [facility] Financial Reconciliation Work Phone: MCH (RBC) [Entitic mass] 30.8 pg 25. 2 - 33.5 pg [employer] Phone: MCHC (RBC) [Mass/Vol] 33.7 g/dL 28.4 - 34.8 g/dL [employer] Phone: MCV (RBC) [Entitic vol] 91.4 fL 82.6 - 102.9 fL [employer] Phone: Monocytes/100 WBC (Bld) 9 % 3 - 12 % M [facility]con[facility] Work Phone: NRBC Automated 0.0 0.0 per 100 WBC [employer] Phone: Platelet distribution width (Bld) [Ratio] 12.2 % 11.8 - 14.4 % [employer] Phone: Platelet Estimate NOT REPORTED [employer] Phone: Platelet mean volume (Bld) [Entitic vol] 10.5 fL 8.1 - 13.5 fL [employer] Phone: Platelets (Bld) [#/Vol] 244 10*3/uL [employer] Phone: RBC (Bld) [#/Vol] 4.52 10*6/uL 4.21 - 5.7 7 m/uL [employer] Phone: RBC (Bld) [#/Vol] NOT REPORTED [employer] Phone: Segmented neutrophils/100 WBC (Bld) 40 % 36 - 65 % [email or web address] Work Phone: Segs [employer] 3[employer] Work Phone: WBC (Bld) [#/Vol] 7.9 10*3/uL [employer] Phone: WBC (Bld) [#/Vol] NOT REPORTED [employer] Phone: [email or web address] Work Phone: CKOrdered By: Ayan Adler o n 08-09-2020 CK [Catalytic activity/Vol] 231 U/L 39 - 308 U/L [employer] Phone: Comprehensive Metabolic Pane lOrdered By: Ayan Adler on 08-09-2020 Albumin [Mass/Vol] 4.1 g/dL 3.5 - 5.2 g/dL [employer] Phone: Albumin/Globulin [Mass ratio] 1.4 {ratio} [employer] Phone: ALP (Bld) [Catalytic activity/Vol] 50 U/L 40 - 129 U/L [employer] Phone: ALT [Catalytic activity/Vol] 29 U/L 5 - 41 U/L [employer] Phone: Anion gap [Moles/Vol] 8 mmol/L Low 9 - 17 mmol/L [employer] Phone: AST [Catalytic activity/Vol] 19 U/L <40 [employer] Phone: Bilirubin [Mass/Vol] 0.94 mg/dL 0.3 - 1 .2 mg/dL [employer] Phone: Calcium [Mass/Vol] 9.6 mg/dL 8.6 - 10. 4 mg/dL [employer] Phone: Chloride [Moles/Vol] 102 mmol/L 98 - 10 7 mmol/L [employer] Phone: CO2 [Moles/Vol] 28 mmol/L 20 - 31 mmol/L [employer] Phone: Creatinine [Mass/Vol] 0.94 mg/dL 0.70 - 1.20 mg/dL [employer] Phone: Free PSA/Total PSA [Mass fraction] 7.0 g/dL 6.4 - 8.3 g/dL [employer] Phone: GFR >60 >60 mL/min [facility] [employer] Work Phone: GFR Non- >60 >60 mL/min [facility] [employer] Work Phone: Glucose [Mass/Vol] 93 mg/dL 70 - 99 mg/dL [facility] [employer] Work Phone: Interpretation and review of laboratory results Abnormal [facility] [employer] Work Phone: Potassium [Moles/Vol] 4.4 mmol/L 3.7 - 5.3 mmol/L [facility] [employer] Work Phone: Sodium [Moles/Vol] 138 mmol/L 135 - 144 mmol/L [facility] [employer] Phone: Urea nitrogen (BldV) [Mass/Vol] 12 mg/dL 6 - 20 mg/dL [facility] [employer] Phone: Urea nitrogen/Creatinine (Bld) [Mass ratio] 13 [facility] [employer] Work Phone: Iron and TIBCOrdered By: Wendy Adler on 08-09-2020 Iron [Mass/Vol] 102 ug/dL 59 - 158 ug/dL [facility] [employer] Work Phone: Iron Saturation 35 % 20 - 55 % [facility] Work Phone: TIBC 292 ug/dL 250 - 450 ug/dL [facility] [employer] Phone: UIBC 190 ug/dL 112 - 347 ug/dL [facility] [employer] Work Phone: [facility] [employer] Work Phone: Laboratory - Chemistry and C hemistry - challengeOrdered By: Ayan Adler on 08-09-2020 GFR/1.73 sq M.predicted MDRD (S/P/Bld) [Vol rate/Area] [facility] [employer] Phone: Comment on above: Average GFR for 40-4 9 years old: 99 mL/min/1.73sq m Chronic Kidney Disease: <60 mL/min/1.73sq m Kidney failure: <15 mL/min/1.73sq m eGFR calculated using average adult body mass. Additional eGFR calculator available at: http://www.[employer]/multiple_crcl_2012.htm Stage 1: Some kidney damage normal GFR Stage 2: Mild kidney damage GFR 60-89 Stage 3: Moderate kidney damage GFR 30-59 Stage 4: Severe kidney damage GFR 15-29 Stage 5: Severe kidney damage GFR <15 ESRD - chronic treatment by dialysis or transplant Lipid PanelOrdered By: Debora Adler on 08-09-2020 Cholesterol [Mass/Vol] 160 mg/dL <200 [employer] Phone: Comment on above: Cholesterol Guidelines: <200 Desirable 200-240 Borderline >240 Undesirable Cholesterol in HDL [Mass/Vol] 31 mg/dL Low >40 [employer] Phone: Comment on above: HDL Guidelines: <40 Undesirable 40-59 Borderline >59 Desirable Cholesterol in LDL [Mass/Vol] 99 mg/dL 0 - 130 mg/dL [employer] Phone: Comment on above: LDL Guidelines: <100 Desirable 100-129 Near to/above Desirable 130-159 Borderline >159 Undesirable Direct (measured) LDL and calculated LDL are not interchangeable tests. Cholesterol in VLDL [Mass/Vol] NOT REPORTED 1 - 30 mg/dL [employer] Phone: Cholesterol.total/Choles terol in HDL [Mass ratio] 5.2 {ratio} High <5 [employer] Phone: Interpretation and review of laboratory results Abnormal [employer] Phone: Triglyceride [Mass/Vol] 149 mg/dL <150 M [employer] Phone: Comment on above: Triglyceride Guidelines: <150 Desirable 150-199 Borderline 200-499 High >499 Very high Based on AHA Guidelines for fasting triglyceride, December 2011. [employer] Phone: MagnesiumOrdered By: Ayan Adler on 08-09-2020 Magnesium [Mass/Vol] 2.2 mg/dL 1.6 - 2 .6 mg/dL [employer] Phone: No Panel InformationOrdered By: Jimherminia Vitor on 08-09-2020 [employer] Phone: [employer] Phone: TSH with ReflexOrdered By: Angie Adler on 08-09-2020 TSH Qn 1.68 m[IU]/L [employer] Phone: Uric AcidOrdered By: Romyhaylieherminia Vitor on 08-09-2020 Urate [Mass/Vol] 4.8 mg/dL 3.4 - 7.0 mg/dL [employer] Phone: Vitamin B12 & FolateOrdered By: Jimherminia Vitor on 08-09-2020 Cobalamin (Vitamin B12) [Mass/Vol] 529 pg/mL 232 - 1245 pg/mL [employer] Phone: Folate 16.7 ng/mL >4.8 [employer] Phone: Ambulatory Clinical Summaryo n 05-26-2020 Ambulatory Clinical Summary {[id number] Normal [facility] Patient Educationon 05-27-19 21 Patient Education Urology Testicular Self-Exam A self-examination of your testicles (testicular self-exam) involves looking at and feeling your testicles for abnormal lumps or swelling. Several things can cause swelling, lumps, or pain in your testicles. Some of these causes are: ? Injuries. ? Inflammation. ? Infection. ? Buildup of fluids around your testicle (hydrocele). ? Twisted testicles (testicular torsion). ? Testicular cancer. Why is it important to do a testicular self-exam? Self-examination of the testicles and the left and right groin areas may be recommended if you are at risk for testicular cancer. Your groin is where your lower abdomen meets your upper thighs. You may be at risk for testicular cancer if you have: ? An undescended testicle (cryptorchidism). ? A history of previous testicular cancer. ? A family history of testicular cancer. How to do a testicular self-exam The testicles are easiest to examine after a warm bath or shower. They are more difficult to examine when you are cold. This is because the muscles attached to the testicles retract and pull them up higher or into the abdomen. A normal testicle is egg-shaped and feels firm. It is smooth and not tender. The spermatic cord can be felt as a firm, spaghetti-like cord at the back of your testicle. Look and feel for changes ? Stand and hold your penis away from your body. ? Look at each testicle to check for lumps or swelling. ? Roll each testicle between your thumb and forefinger, feeling the entire testicle. Feel for: ? Lumps. ? Swelling. ? Discomfort. ? Check the groin area between your abdomen and upper thighs on both sides of your body. Look and feel for any swelling or bumps that are tender. These could be enlarged lymph nodes. Contact a health care provider if: ? You find any bumps or lumps, such as a small, hard, pea-sized lump. ? You find swelling, pain, or soreness. ? You see or feel any other changes in your testicles. Summary ? A self-examination of your testicles (testicular self-exam) involves looking at and feeling your testicles for any changes. ? Self-examination of the testicles and the left and right groin areas may be recommended if you are at risk for testicular cancer. ? You should check each of your testicles for lumps, swelling, or discomfort. ? You should check for swelling or tender bumps in your groin area between your lower abdomen and upper thighs. This information is not intended to replace advice given to you by your health care provider. Make sure you discuss any questions you have with your health care provider. Document Released: 05/30/2001 Document Revised: 06/14/2019 Document Reviewed: 01/17/2017 Elsevier Patient Education ? 2019 [employer] David [facility] Urology Office/Clinic Noteon 05-26-2020 Urology Office/Clinic Note Chief Complaint left testicular pain HPI Staff Pt is here for left testicular pain. Pt had a vasectomy done 11/30/2019. Pt states that his testicular pain began around March. States that it is not constantly there but any slight touch or rubbing of his jeans can cause it to hurt. Pt states that he can feel a small bump in that area but has had no swelling or redness. Dysuria: no Incomplete bladder emptying: no Hematuria: no Frequency: no Urgency: no Nocturia: 1x Stream: moderate Leaking: no Post void dripping: no Wearing pads/ Depends: no Urge incontinence: no Stress incontinence: no Incontinence without Sensory Awareness: no Abdominal pain: none Flank pain: pt has back issues that he is having surgery for Sexual complaints: no History of Present Illness Reviewed urine. There have been no associated fever, chills, flank pain or blood in the urine. Pt. denies any pain/burning with urination at this time. Review of Systems PHQ Score Initial Depression Screen Score: 0 ROS - Provider Constitutional: denies weight loss, denies hot flashes. Eyes: denies eye problems. Gastrointestinal: denies nausea, denies vomiting. Cardiovascular: denies chest pain or angina. Integumentary: no dryness Musculoskeletal: denies musculoskeletal symptoms. ENMT: denies otolaryngeal symptoms. Respiratory: no shortness of breath. Heme/Lymph: denies easy bleeding tendency, denies easy bruising tendency. Psychiatric: no confusion, no anxiety. Genitourinary: denies dysuria, denies hematuria, denies discharge, denies urinary frequency, denies urinary hesitancy, denies nocturia, denies incontinence, denies genital sores, denies decreased libido, and denies erectile dysfunction. Physical Exam Vitals & Measurements HR: 78(Peripheral) RR: 16 BP: 133/90 HT: 178.0 cm HT: 178 cm WT: 109.0 kg WT: 109 kg BMI: 34.4 General Appearance: alert, no distress, well nourished, well developed male. Genitourinary: normal scrotum, normal testes, normal urethra, normal epididymis, abnormal mild induration on head and tail ov epididi. tender also. vas deferens/spermatic cord. Flank Pain: none. Bladder: nonpalpable. Assessment/Plan 1. Epididymitis (N45.1: Epididymitis) S/p Vasectomy 11/30/2019. Pt. states ongoing testicular pain since 03/2020. Epididymitis noted on today's exam. Will start pt. on Doxycycline 100mg qd for 3wks. Discussed the medication side effects, and the patient will monitor closely for these, as well as for symptom improvement. If severe side effects occur, the medication should be stopped and the office notified. Script sent to [facility] in [place]. All questions/concerns were discussed. Pt. to call the office if heencounters any issues prior. Pt. acknowledges understanding. 2. Nocturia (R35.1: Nocturia) 1x/night. Pt. is doing well overall w/ his urination at this time. I have reviewed the previous health record information and history for this pt. from Dr. Mathews. Follow-up With When Contact Information AMEENA RITCHIE, Pascual Belle [facility] [place] [address] [place] [address]- [phone] Additional Instructions: prn Patient Education Testicular Self-Exam I, Radha Olivares , personally scribed for Dr. Mathews on 05/26/2020 16:41:06. . Documentation recorded by the scribe, Radha Olivares, accurately reflects the services(s) I performed and decisions made by me. Authenticated by Dr. Mathwes on 05/26/2020 16:45:17. Problem List/Past Medical History Ongoing Anemia Status post vasectomy Vasectomy evaluation Historical No qualifying data Procedure/Surgical History Vasectomy (11/30/2019), Procedure on back. Medications Flonase 0.05 mg/inh nasal spray, Nasal, Daily Iron Chews, Oral, Daily naproxen, Oral traMADOL 50 mg Tab, Oral, q6hr Vitamin C, Daily Zyrtec, Daily Allergies No Known Allergies Social History Alcohol - Denies Alcohol Use, 12/28/2019 Tobacco Former smoker, quit more than 30 days ago Tobacco Use:., 10/29/2019 Family History Anemia: Mother. Lab Results Ambulatory Point of Care Results Bilirubin Urine Dipstick: Negative (05/26/20 15:58:00) Blood Urine Dipstick: Negative (05/26/20 15:58:00) Glucose Urine Dipstick: Negative (05/26/20 15:58:00) Ketones Urine Dipstick: Negative (05/26/20 15:58:00) Leukocytes Urine Dipstick: Negative (05/26/20 15:58:00) Nitrite Urine Dipstick: Negative (05/26/20 15:58:00) Protein Urine Dipstick: Negative (05/26/20 15:58:00) Specific [place] Urine Dipstick: 1.015 (05/26/20 15:58:00) Urine Appearance Urine Dipstick: Clear (05/26/20 15:58:00) Urine Color Urine Dipstick: Light yellow (05/26/20 15:58:00) Urobilinogen Urine Dipstick: Normal 0.2-1 EU/dl (05/26/20 15:58:00) pH Urine Dipstick: 5.5 (05/26/20 15:58:00) Normal [facility] Comment on above: Result Comment: Elec tronically Signed By: Pascual MATHEWS MD\.br\Date and Time Signed: 05/26/20 16:45 EDT\.br\Electronically Co-Signed By: Radha Olivares MA\.br\Date and Time Co-Signed: 05/26/20 16:41 EDT Ambulatory Clinical Summaryo n 12-28-2019 Ambulatory Clinical Summary {[id number] Normal [facility] Patient Educationon 12-28-19 20 Patient Education Family Medicine Control and Sports Participation in athletics does not affect control. Women of childbearing age should use the control method of their choice. As with all sexual activity, sexually transmitted diseases must be considered when athletes choose a control method. Only certain barrier methods provide protection against sexually transmitted diseases. control pills do not. However, control pills can be very effective against . WHAT IS THE EFFECT OF EXERCISE ON CONTROL PILLS? An individual's athleticism does not alter the effectiveness of control pills. Taking control pills should not alter physical fitness. However, control pills are a medication and can have side effects. The side effects include: ? Risk of blood clots. ? Liver effects. ? Cancer concerns. ? Possible weight gain. ? Changes and symptoms to a woman's period (menstrual cycle ). These side effects may affect athletic performance. WHAT IS THE EFFECT OF GETTING YOUR PERIOD AND ATHLETIC PERFORMANCE? Studies have shown that a woman's regular period does not usually affect athletic performance. However, some female athletes who experience discomfort at certain phases of their periods feel that competition is not possible. For these athletes, controlling one's period by adjusting control use may be helpful. HOW CAN I CONTROL MY PERIOD BY ADJUSTING MY CONTROL PILLS? control pills regulate the duration of a woman's period. Planning is important for women who want to compete. Women who use control pills may be able to postpone their period by skipping their placebo pills and moving directly on to the next set of pills. It is important to discuss changing your period cycle with your caregiver before making any changes to how you take your control pills. Document Released: 02/21/2006 Document Revised: 05/15/2012 Document Reviewed: 06/05/2009 ExitCare? Patient Information ?2013 [employer]. [facility] Urology Office/Clinic Noteon 12-28-2019 Urology Office/Clinic Note HPI Staff Pt is here for f/u to vasectomy done 11/30/2019. Pt states everything is well and he is having no issues at this time. Dysuria: denies Incomplete bladder emptying: denies Hematuria: denies Frequency: denies Urgency: denies Nocturia: 1x Stream: moderate to strong without hesitancy Leaking: no Post void dripping: no Wearing pads/ Depends: no Urge incontinence: no Stress incontinence: no Incontinence without Sensory Awareness: no Abdominal pain: no Flank pain: no Sexual complaints: no History of Present Illness reviewed last encounter. There have been no associated fever, chills, flank pain or blood in the urine. Pt is not having any burning with urination. Review of Systems ROS - Provider Constitutional: denies weight loss, denies hot flashes. Eyes: denies eye problems. Gastrointestinal: denies nausea, denies vomiting. Cardiovascular: denies chest pain or angina. Integumentary: no dryness Musculoskeletal: denies musculoskeletal symptoms. ENMT: denies otolaryngeal symptoms. Respiratory: no shortness of breath. Heme/Lymph: denies easy bleeding tendency, denies easy bruising tendency. Psychiatric: no confusion, no anxiety. Genitourinary: denies dysuria, denies hematuria, denies discharge, denies urinary frequency, denies urinary hesitancy, denies nocturia, denies incontinence, denies genital sores, denies decreased libido, and denies erectile dysfunction. Physical Exam GENERAL APPEARANCE: alert, no distress, well nourished, well developed male. GENITOURINARY: incision site healing well, no sign of infection of the scrotum, normal testes, normal urethra, normal epididymis, s/p PO Vasectomy Vas deferens/spermatic cord. Assessment/Plan 1. Status post vasectomy (Z98.52: Vasectomy status) He is aware that he is not sterile until he has a 2 Negative semen analysis which will be checked after about two months and after about 20-30 ejaculations. He should deliver the semen specimen to the lab within 30min. of ejaculation and he will call one week later to get the results. Pt is to have 2 negative results. Pt states he is not having any issues at this time. I have reviewed the previous health record information and history for this patient from Dr. Mathews Follow-up With When Contact Information AMEENA RITCHIE, Pascual Belle Only if needed [facility] [address], [place] [address]- [phone] Additional Instructions: Patient Education Control and Sports-SportsMed I, Dayanna Kumar, personally scribed for Dr. Mathews on 12/28/2019 08:42:19. . Documentation recorded by the scribe, Dayanna Kumar, accurately reflects the services(s) I performed and decisions made by me. Authenticated by Dr. Mathews on 12/28/2019 08:43:21. Problem List/Past Medical History Ongoing Anemia Status post vasectomy Vasectomy evaluation Historical No qualifying data Procedure/Surgical History Procedure on back. Medications Flonase 0.05 mg/inh nasal spray, Nasal, Daily Iron Chews, Oral, Daily naproxen, Oral, Not taking traMADOL 50 mg Tab, Oral, q6hr Vitamin C, Daily Zyrtec, Daily Allergies No Known Allergies Social History Alcohol - Denies Alcohol Use, 12/28/2019 Tobacco Former smoker, quit more than 30 days ago Tobacco Use:., 10/29/2019 Family History Anemia: Mother. Normal [facility] Comment on above: Result Comment: Elec tronically Signed By: Pascual MATHEWS MD\.br\Date and Time Signed: 12/28/19 08:43 EDT\.br\Electronically Co-Signed By: Dayanna Kumar MA\.br\Date and Time Co-Signed: 12/28/19 08:42 EDT Provider Letteron 12-24-2019 Provider Letter December 24, 2019 MARCELO LOCKHART P [address] [address] MARCELO LOCKHART P 1975 Dear Marcelo, You missed your scheduled appointment on: 12/24/2019 and the purpose of this letter is to inform you of our *No Show Policy*. Our appointment slots fill rapidly and when we have a no show appointment that time is lost. We could have used that time slot to care for a patient who needed to see one of our providers. Therefore, we ask that you call 24 hours in advance to cancel your appointment. After your second no show within a twelve (12) month period, you will be assessed a $30 charge. This policy is in place so that we can meet the needs of all of our patients and we do appreciate your understanding. Sincerely, [facility] [address] [place] [address], [place] [address] Normal [facility] Operative Reporton 0 Operative Report [id number]# 1.00CD:127 Normal [facility] Pathology Noteon 12-03-2019 Pathology Note [id number] #1.00CD:127 [facility] Deejay 11-30-2019 L Specimen: [id number] Received: 11/30/19 Status: BALDO Waddell Num: [id number] Spec Type: Surgical Subm Dr: Pascual Mathews MD Tissues: A VAS DEFERENS - sterilization (RT VAS SEGMENT) B VAS DEFERENS - sterilization (LT VAS SEGMENT) Procedures: HE Stain/2, Gross/Micro L2/2 Patient Age/Sex Location Account Attending Physician Marcelo Lockhart/[place] [id number] Pascual Mathews MD SPEC NUM: [id number] RECD: 11/30/19 STATUS: BALDO GANTAleja NUM: [id number] VIDA: 11/30/[address] [facility] [address]: Pascual Mathews MD ENTERED: 11/30/[address] [facility] [address]: [facility] SPEC TYPE: Surgical DEPT: S ORDERED: HE Stain/2, Gross/Micro L2/2 ORDERED: HE Stain/2, Gross/Micro L2/2 Pathological Diagnosis A. Right vas deferens, segmental vasectomy: Segment of vas deferens with complete and patent lumen. B. Left vas deferens, segmental vasectomy: Segment of vas deferens with complete and patent lumen. Specimen Clinical Information Sun male Sydnee A. Received in formalin labeled with the patient's name, number and right vas segment is a 1.1 cm in length by 0.3-0.4 cm in diameter ivey-pink tubular tissue fragment, which is submitted in toto to be cut at embedding. Entirely submitted in one cassette labeled A1. (/YJ) B. Received in formalin labeled with the patient's name, number and left vas segment is a 1.6 cm in length by 0.3 cm in diameter ivey-pink tubular tissue fragment, which is submitted in toto cut at embedding. Entirely submitted in one cassette labeled B1. (/YJ) Specimen: [id number] Received: 11/30/19 Status: BALDO Gantaleja Num: [id number] Spec Type: Surgical Subm Dr: Pascual Mathews MD Tissues: A VAS DEFERENS - sterilization (RT VAS SEGMENT) B VAS DEFERENS - sterilization (LT VAS SEGMENT) Procedures: HE Stain/2, Gross/Micro L2/2 Patient: Marcelo Lockhart [id number] (Continued) Specimen: [id number] Received: 11/30/19 (Continued) Signed (signature on file) Abbe Rueda MD 12/03/19 1057 Specimen: Received: 11/30/19 Status: BALDO Bairon Num: [id number] Spec Type: Surgical Subm Dr: Pascual Mathews MD Tissues: A VAS DEFERENS - sterilization (RT VAS SEGMENT) B VAS DEFERENS - sterilization (LT VAS SEGMENT) Procedures: ERIKA Stain/2Sydnee/Niraj L2/2 Patient: Marcelo Lockhart [id number] (Continued) Specimen: [id number] Received: 11/30/19 (Continued) Microscopic A. One H E reviewed. B. One H E reviewed. Microscopic examination confirms the diagnosis. CPT Codes 91686 x 2 A. sterilization - RT VAS SEGMENT B. sterilization - LT VAS SEGMENT Specimen: [id number] Received: 11/30/19 Status: BALDO Waddell Num: [id number] Spec Type: Surgical Subm Dr: Pascual Mathews MD Tissues: A VAS DEFERENS - sterilization (RT VAS SEGMENT) B VAS DEFERENS - sterilization (LT VAS SEGMENT) Procedures: HE Stain/2, Gross/Micro L2/2 Patient: Marcelo Lockhart [id number] (Continued) Signed (signature on file) Abbe Rueda MD 12/03/19 1057 [facility] Ambulatory Clinical Summaryo n 10-29-2019 Ambulatory Clinical Summary {[id number] Normal [facility] Formson 10-29-2019 Forms [id number] #1.00CD:127 Normal [facility] Patient Educationon 10-29-19 Patient Education Family Medicine Vasectomy A vasectomy is tying (with or without cutting) the tube that collects the sperm from the testicle (vas deferens ). The vasectomy blocks the sperm from going through the vas deferens and penis so that during sexual intercourse, the sperm does not go into the vagina. Vasectomy is safe, with very rare complications. It does not affect your sexual desire or performance. Since vasectomy is considered permanent, you should not have it done until you are sure you do not want any more children. You and your partner should be in full agreement to have the procedure. Your decision to have a vasectomy should not be made during a stressful situation. This includes loss of a , illness, of a spouse or divorce. There are other means of contraception that can be used until you are completely sure you want this procedure done. A vasectomy does not protect you from sexually transmitted disease. Men who want the vasectomy reversed need an operation. It may not be successful. A vasectomy has less risk and is less expensive than a woman having a tubal sterilization. LET YOUR CAREGIVER KNOW ABOUT: ? Allergies. ? Medications taken including herbs, eye drops, over the counter medications, and creams. ? Use of steroids (by mouth or creams). ? Past problems with anesthetics or Novocaine. ? History of blood clots (thrombophlebitis ). ? History of bleeding or blood problems. ? Past surgery. RISKS AND COMPLICATIONS ? Failure of the procedure to cause infertility. This means you would still be able to get a female . ? Post-operative pain. This can usually be controlled with medicine. ? Infection. A germ starts growing in the wound. This can usually be treated with antibiotics. ? An allergic reaction to the anesthetic or other medicine given. ? Bleeding. Blood may seep under the skin so that the scrotum and penis appear to be bruised. Sometimes the scrotum can swell and get the size of a grapefruit. This usually disappears without treatment within a week or two. PROCEDURE ? The scrotum is cleaned with bacterial killing soap and the caregiver finds the vas deferens. ? Each side of the scrotum is numbed. ? A very small cut (incision ) is made, and the vas deferens are pulled out of the scrotum. The vas deferens are then tied off, cut or may be burned (cauterized ) at the ends. ? Sometimes the vas deferens are pulled out from the scrotum through a puncture wound. This is done with a special instrument without an incision. ? The vas deferens are then put back into the scrotum, and the incision or puncture wound is closed. ? After surgery, sperm may still be left in the vas deferens for 1 to 3 months. Because of this, other means of contraception should be used until your caregiver examines you and finds there are no sperm in your seminal fluid. ? Castration is another method that is the surgical removal of both testicles. It causes sterilization in men. Having a vasectomy should be discussed with your live in caregiver with you and your partner present. Ask questions and talk about your concerns with your caregiver. Then, you can decide if the operation is safe for you. You can change your mind and cancel the surgery at any time. HOME CARE INSTRUCTIONS ? Only take eodg-gmh-oktcsur or prescription medicines for pain, discomfort or fever as directed by your caregiver. ? An ice pack for 15-20 minutes, 3-4 times per day will help decrease swelling. ? Wearing supportive briefs or an athletic supporter will help decrease swelling. ? Avoid being active for the first two days after surgery. ? Keep the incisions clean and covered to prevent infection. ? Some oozing of blood from the cut (incision ) is normal during the first day or two after surgery. ? Do not participate in sports or do heavy physical labor for at least two weeks. ? Follow your caregivers instructions regarding diet, rest, work, social and sexual activities and follow up appointments. SEEK IMMEDIATE MEDICAL CARE IF: ? There is redness, swelling, or increasing pain in the wounds or testicles. ? Pus is coming from wound. ? An unexplained oral temperature above 102? F (38.9? C) develops, or as directed by your caregiver. ? You notice a bad smell coming from the wound or material covering the wound (dressing ). ? There is a breaking open of the stitches (suture ) or wound edges even after sutures have been removed. Sometimes these incisions are not sutured. ? There is increased bleeding from the wounds. MAKE SURE YOU: ? Understand these instructions. ? Will watch your condition. ? Will get help right away if you are not doing well or get worse. Document Released: 05/14/2003 Document Revised: 05/15/2012 Document Reviewed: 07/09/2008 ExitCare? Patient Information ?2013 [employer]. [facility] Urology Office/Clinic Noteon 10-29-2019 Urology Office/Clinic Note Chief Complaint vasectomy consult HPI Staff Vasectomy consult. Pt has 3 children. Pt is not having any urinary issues at this time. Pt states he has no issues with erections. Dysuria: no pain or burning Incomplete bladder emptying: empty's well Hematuria: denies any blood in urine Frequency: normal Urgency: no Nocturia: none Stream: average to strong stream. no hesitation. no intermittent stream. Urge incontinence: none Stress incontinence: none Incontinence without Sensory Awareness: none Abdominal pain: no pains Flank pain: none Sexual complaints: no issues with erections, no pain or swelling History of Present Illness Reviewed RESPITE PROVIDER paper work. Pt. unable to give UA today. There have been no associated fever, chills, flank pain or blood in the urine. Pt. denies any pain/burning with urination at this time. Review of Systems PHQ Score Initial Depression Screen Score: 0 ROS - Provider Constitutional: denies weight loss, denies hot flashes. Eyes: denies eye problems. Gastrointestinal: denies nausea, denies vomiting. Cardiovascular: denies chest pain or angina. Integumentary: no dryness Musculoskeletal: denies musculoskeletal symptoms. ENMT: denies otolaryngeal symptoms. Respiratory: no shortness of breath. Heme/Lymph: denies easy bleeding tendency, denies easy bruising tendency. Psychiatric: no confusion, no anxiety. Genitourinary: denies dysuria, denies hematuria, denies discharge, denies urinary frequency, denies urinary hesitancy, denies nocturia, denies incontinence, denies genital sores, denies decreased libido, and denies erectile dysfunction. Physical Exam Vitals & Measurements HR: 68(Peripheral) RR: 18 BP: 148/94 HT: 179 cm HT: 179.0 cm WT: 112 kg WT: 112.0 kg BMI: 34.96 General Appearance: alert, no distress, well nourished, well developed male. Head: normocephalic . Eyes: normal orbit and globe. ENMT: normal examination of external ears. Chest: Lungs CTA, respirations non labored. Cardiovascular: regular rate and rhythm. Abdomen: soft, non distended, no tenderness, no mass or organomegaly, no hernia. Genitourinary: normal scrotum, normal testes, normal urethra, normal epididymis, normal vas deferens/spermatic cord. Flank Pain: none. Bladder: nonpalpable. Penis: normal shaft, normal glans. Lymph Nodes: unremarkable palpation of the cervical area. Skin: warm, dry, no bruising. Psychiatric: cooperative, affect appropriate for age, normal judgement, euthymic mood. Assessment/Plan 1. Vasectomy evaluation (Z30.09: Encounter for other general counseling and advice on contraception) Pt. is doing well overall with his urination. Will schedule Vasectomy. The procedural risks, benefits, details, and treatment alternatives of sterilization have been discussed with the patient today. He understands this procedure is considered permanent, even though vasectomy reversals can be performed. There is no guarantee of successful reversal resulting in , however. Risks discussed include bleeding, infection, failure with in about 1:2500, post-vasectomy syndrome (chronic pain in the testicle or scrotum), possible association with prostate cancer development in the future, and erection problems, among others. Despite these risks, he wishes to proceed. He also understands that he is not considered sterile until a negative semen sample has been received after about 2-3 months after the vasectomy. Full informed consent has been obtained. Will order Local anesthesia. I have reviewed the previous health record information and history for this pt. from Dr. Mathews. Follow-up With When Contact Information Pascual MATHEWS MD [address] [place] [address]- [phone] Additional Instructions: Patient Education Vasectomy I, Radha Olivares , personally scribed for Dr. Mathews on 10/29/2019 09:55:29. . Documentation recorded by the scribe, Radha Olivares, accurately reflects the services(s) I performed and decisions made by me. Authenticated by Dr. Mathews on 10/29/2019 09:57:07. Problem List/Past Medical History Ongoing Anemia Vasectomy evaluation Historical No qualifying data Procedure/Surgical History Procedure on back. Medications Flonase 0.05 mg/inh nasal spray, Nasal, Daily Iron Chews, Oral, Daily naproxen, Oral traMADOL 50 mg Tab, Oral, q6hr Vitamin C, Daily Zyrtec, Daily Allergies No Known Allergies Social History Tobacco Former smoker, quit more than 30 days ago Tobacco Use:., 10/29/2019 Family History Anemia: Mother. Normal [facility] Comment on above: Result Comment: Elec tronically Signed By: Pascual MATHEWS MD\.br\Date and Time Signed: 10/29/19 09:57 EDT\.br\Electronically Co-Signed By: Radha Olivares MA\.br\Date and Time Co-Signed: 10/29/19 09:55 EDT Encounters Encounter Date Encounter Type Care Provider Facility Start: 01-15-2022 End: 01-16-2022 ambulatory [facility] Start: 01-15-2022 End: 01-15-2022 Subsequent hospital visit by physician Ayan Adler MD Work Phone: [facility] Start: 12-14-2021 End: [address] DOCTOR THURMAN Facility:[facility] Start: 11-24-2021 End: 11-25-[address] DOCTOR THURMAN Facility:[facility] Start: 08-28-2021 Emergency department patient visit [facility] Start: 01-03-2021 End: 01-03-2021 Subsequent hospital visit by physician Ayan Adler MD Work Phone: [facility] Start: 08-09-2020 End: 08-09-2020 Subsequent hospital visit by physician Ayan Adler MD Work Phone: [facility] Laboratory Procedures Date Procedure Procedure Detail Performing Clinician Start: 01-15-2022 Comprehensive metabo lic panel Ayan Adler MD Work Phone: Start: 01-15-2022 Lipid panel Ayan sandhu MD Work Phone: Start: 01-03-2021 C-reactive protein Rich nicolasa Sams MD Work Phone: Start: 01-03-2021 Comprehensive metabo lic panel Karri Sams MD Work Phone: Start: 01-03-2021 VITAMIN B12 & FOLATE Ri hung Sams MD Work Phone: Start: 08-09-2020 PSA screening Ayan vences MD Work Phone: Comment on above: The Juan ECLIA as say is used. Results obtained with different assay methods cannot be used interchangeably. Start: 08-09-2020 Comprehensive metabo lic panel Ayan Adler MD Work Phone: Start: 08-09-2020 Lipid panel Ayan sandhu MD Work Phone: Start: 08-09-2020 VITAMIN B12 & FOLATE Romy Adler MD Work Phone: Plan of Treatment Date Care Activity Detail Author Start: 08-09-2025 [facility]: 10-05-2021 [facility] Start: 11-05-2020 Influenza vaccination [facility] [employer] Work Phone: Start: 2012 Diabetes screen Diabetes screen [facility] [employer] Start: 1996 DTaP/Tdap/Td vaccine (1 - Tdap) DTaP/Tdap/Td vaccine (1 - Tdap) [facility] [employer] Start: 12-16-1995 Hepatitis C screening Hepatitis C sc reen [facility] [employer] Start: 1992 HIV screening HIV screen [facility] [employer] Start: 1989 COVID-19 Vaccine (1) COVID-19 Vaccin e (1) [employer] Phone: Start: 1989 Depression Screen Depression Screen [facility] [employer] Start: 06-15-1978 COVID-19 Vaccine (#1) COVID-19 Vacci ne (#1) [facility] [employer] End: 01-03-2021 KIRSTEN Screen with Reflex KIRSTEN Screen with Reflex Lab Routine Once for 1 Occurrences starting 01/03/2021 until 01/03/2021 [employer] Phone: Comment on above: Once for 1 Occurrenc es starting 01/03/2021 until 01/03/2021 KIRSTEN Screen with Reflex KIRSTEN Scree n with Reflex Lab Routine 01/03/2021 9:10 AM EDT [employer] Phone: End: 01-03-2021 Flow cytometry leukemia/lymphoma blood Flow cytometry leukemia/lymphoma blood Lab Routine Once for 1 Occurrences starting 01/03/2021 until 01/03/2021 [employer] Phone: Comment on above: Once for 1 Occurrenc es starting 01/03/2021 until 01/03/2021 Flow cytometry leukemia/lymphoma blood Flow cytometry leukemia/lymphoma blood Lab Routine 01/03/2021 9:10 AM EDT [employer] Phone: End: 01-03-2021 Methylmalonic Acid, Serum Methylmalonic Acid, Serum Lab Routine Once for 1 Occurrences starting 01/03/2021 until 01/03/2021 [employer] Phone: Comment on above: Once for 1 Occurrenc es starting 01/03/2021 until 01/03/2021 Methylmalonic Acid, Serum Methyl malonic Acid, Serum Lab Routine 01/03/2021 9:10 AM [employer] Phone: End: 01-15-2022 PSA, free [employer] Phone: Comment on above: Once for 1 Occurrenc es starting 01/15/2022 until 01/15/2022 Payers Date Payer Category Payer Unknown [id number] 1975 Unknown [id number] 1975 Unknown [id number] 1977 Unknown [id number] 1959 Unknown [id number] Social History Date Type Detail Facility Tobacco smoking stat [facility] Unknown if ever smoked [employer] Phone: Start: 1975 Sex Assigned At Not on file [facility] [employer] Phone: Start: 08-28-2021 Tobacco smoking stat [facility] Never smoked tobacco [employer] Phone: Start: 08-28-2021 Tobacco use and exposure Smokeless tobacco non-user [employer] Phone: Summary Purpose Family History No Family History Records FoundNo Family History Records FoundNo Family History Records FoundNo Family History Records Found Advance Directives No Advanced Directives Records FoundDocuments on File Type Date Recorded Patient Cupola Tapper Expl anation ACP-Advance Directive ACP-Power of Power Distributor Additional Source Comments (unrecognized sect ion and content) No Status Records FoundNo Status Records FoundNo Status Records FoundNo Status Records Found INFORMATION SOURCE (unrecogn ized section and content) DATE CREATED AUTHOR 12/07/2019 [facility] DATE CREATED AUTHOR AUTHOR'S ORGANIZ ATION 05/27/2020 [facility] DATE CREATED AUTHOR AUTHOR'S ORGANIZ ATION [facility] DATE CREATED AUTHOR AUTHOR'S SUGAR ATION 01/18/2022 [facility] Care Teams (unrecognized sec tion and content) Delivery Room Clerk Relationship Specialty Start Date End Date Ayan Adler MD [id number] [facility] [address] [place] [id number] PCP - General Family Medicine 08/09/20 FOR RECORDS PERTAINING TO PATIENTS WHO ARE OR HAVE BEEN ENROLLED IN A CHEMICAL DEPENDENCY/SUBSTANCEABUSE PROGRAM, SOME INFORMATION MAY BE OMITTED. This clinical summary was aggregated from multiple sources. Caution should be exercised in using it in the provision of clinical care. This summary normalizes information from multiple sources, and as a consequence, information in this document may materially change the coding, format and clinical context of patient data. In addition, data may be omitted in some cases. CLINICAL DECISIONS SHOULD BE BASED ON THE PRIMARY CLINICAL RECORDS. [employer] provides no warranty or guarantee of the accuracy or completeness of information in this document.
== END 2023-10-05 14:50 | disposition home or self-care (01) ==
LOC: CT 14:49
PROVIDERS: PCP Nurse Practitioner Family; Visit Provider Nurse Practitioner Family
DX: R09.89 Other specified symptoms and signs involving the circulatory and respiratory systems (principal)
CPT/HCPCS: 70486

== ENCOUNTER 2024-02-18 08:29 | Outpatient (OUT) | payer OTHER, SELFPAY ==
--- OUTSIDE RECORDS SUMMARY | 2024-02-18 08:36 | XMS_ITS | CCD ---
Author Organization [facility] Care Team Providers Care Aerospace Engineer Name Role Phone Ayan Adler MD Primary Care Provider MISC, DR GRIER Admitting Unavailable MISC, DR GRIER Attending Unavailable MISC, DR GRIER Consulting Unavailable MISC, DOCTOR Admitting Unavailable MISC, DOCTOR Attending Unavailable MISC, DR GRIER Consulting Unavailable Vitor RITCHIE, Ayan Primary Care Provider [phone] AYAN ADLER Referring Unavailable AYAN ADLER Primary Care Unavailable AYAN ADLER Primary Care Unavailable RIVERA KAUR Attending Unavailable DEBORAH MURRIETA Attending Unavailable KAILYN AVERY Referring Unavailable DEBORAH MURRIETA Referring Unavailable DEBORAH MURRIETA Attending Unavailable Unavailable Primary Care Provider UnavailSOPHIA Nuno Attending Unavailable Soheila Dick MD Unavailable Kailyn Avery MD Primary Care Provider [phone] Medications Current Medications Medication Drug Class(es) Dates Sig (Normalized) Sig (Original) ascorbic acid 100 mg oral tablet (3 sources) Vitamin C take 1 tablet by mouth once daily Ascorbic Acid (vitamin C) 100 MG tablet Take 100 mg by mouth Daily Active baclofen 10 mg oral tablet (1 source) gamma-Aminobutyr ic Acid-ergic Agonist Start: 08-28-2021 baclofen (LIORESAL) 10 MG tablet 2 tablets 3 times a day as needed for spasm 30 tablet 0 08/28/2021 Active 12 hr cetirizine hydrochloride 5 mg / pseudoephedrine hydrochloride 120 mg extended release oral tablet (4 sources) alpha-Adrenergic Agonist, Histamine-1 Receptor Antagonist Start: 10-12-2023 End: 10-11-2024 take 1 tablet by mouth once in the morning, then take 1 tablet by mouth every twelve hours at bedtime cetirizine-pseudoe phedrine (ZyrTEC-D) 5-120 MG 12 hr tablet Indications: Chronic pansinusitis Take 1 tablet by mouth in the morning and 1 tablet before bedtime. 60 tablet 11 10/12/2023 10/11/2024 Active take 1 tablet by peter th twice daily cetirizine-pseudoephedrine (ZyrTEC-D) 5- 120 mg 12 hr tablet Take 1 tablet by mouth 2 times a day. Active doxycycline hyclate 100 mg oral capsule (1 source) Tetracycline-class Drug take 1 capsule by mouth twice daily doxycycline hyclate (VIBRAMYCIN) 100 MG capsule Take 100 mg by mouth 2 times daily 0 Active fluticasone propionate 0.05 mg/actuat metered dose nasal spray (4 sources) Corticosteroid Start: 10-12-19 End: 10-12-19 25 take 2 spray(s) nasal route once daily fluticasone (Flonase) 50 MCG/ACT nasal spray Indications: Chronic pansinusitis Administer 2 sprays into each nostril Daily Shake gently. Before first use, prime pump. After use, clean tip and replace cap. 48 g 3 10/12/2023 10/11/2024 Active take 1 spray(s) nasal route twic e daily fluticasone (Flonase) 50 mcg/actuation nasal spray Administer 1 spray into each nostril 2 times a day. Shake gently. Before first use, prime pump. After use, clean tip and replace cap. Active 12 hr guaiFENesin 600 mg extended release oral tablet (3 sources) take 1 tablet by mouth in the morning, then take 1 tablet by mouth every twelve hours at bedtime guaiFENesin (Mucinex) 600 MG 12 hr tablet Take 1,200 mg by mouth in the morning and 1,200 mg before bedtime. Do not crush, chew, or split.. Active ibuprofen 800 mg oral tablet (3 sources) Nonsteroidal Anti-inflammatory Drug ibuprofen 800 MG tab let Take 400 mg by mouth every 6 (six) hours if needed for mild pain Active ketorolac tromethamine 10 mg oral tablet (1 source) Nonsteroidal Anti-inflammatory Drug, Cyclooxygenase Inhibitor Start : 08-28 take 1 tablet by mouth every eight [...] deficiency; Translations: [Lipoprotein deficiency] Onset: 01-15-2022 Chronic Other nutritional; endocrine; and metabolic disorders (3 sources) Obesity; Translations: [Obesity, unspecified] Onset: 10-10-2023 10-10-2023 Chronic Other upper respiratory disease (3 sources) Allergic rhinitis; Translations: [Allergic rhinitis, unspecified] Onset: 10-10-2023 10-10-2023 Chronic Other upper respiratory disease (1 source) Deviated nasal septum; Translations: [Deviated nasal septum] 12-28-2023 Episodic Other upper respiratory disease (1 source) Hypertrophy of nasal turbinates; Translations: [Hypertrophy of nasal turbinates] 12-28-2023 Episodic Other upper respiratory infections (7 sources) Chronic frontal sinusitis; Translations: [Chronic frontal sinusitis] Onset: 10-12-2023 12-28-2023 Chronic Residual codes; unclassified (4 sources) Obstructive sleep apnea (adult) (pediatric); Translations: [OBSTRUCTIVE SLEEP APNEA] Onset: 11-24-2021 Chronic Past or Other Problems Problem Classification Problem Date Documented Da te Episodic/Chronic Deficiency and other anemia (3 sources) Iron deficiency anemia; Translations: [Iron deficiency anemia, unspecified] Onset: 10-10-2023 10-10-2023 Episodic Diabetes mellitus without complication (3 sources) Prediabetes; Translations: [Prediabetes] Onset: 10-10-2023 10-10-2023 Episodic Other upper respiratory disease (3 sources) Mucocele of maxillary sinus; Translations: [Cyst and mucocele of nose and nasal sinus] Onset: 10-12-2023 10-12-2023 Episodic Other upper respiratory infections (3 sources) Acute frontal sinusitis; Translations: [Acute frontal sinusitis, unspecified] Onset: 10-10-2023 10-10-2023 Episodic Spondylosis; intervertebral disc disorders; other back problems (8 sources) Backache; Translations: [Lumbago with sciatica] Onset: 08-28-2021 Episodic Results Test Name Value Interpretation Reference Range Facility CT MAXILLOFACIAL WO IV CONTR Yasmeen 11-10-2023 CT MAXILLOFACIAL WO IV CONTRAST Exam: CT - CT FACIAL OR SINUS WO CONTRAST Clinical History: Chronic sinusitis, facial pressure, mucous retention cyst of maxillary sinus Reference Exam: No comparison Imaging technique: Contiguous axial images were obtained through the paranasal sinuses without intravenous contrast administration . Coronal and sagittal reconstructions were generated. Imaging findings: RIGHT: Maxillary antrum/OMC: Patent ostiomeatal complex. Minor superiorly located polypoid appearing mucoperiosteal thickening. Frontal/anterior ethmoid cells: Normal development. Mild mucoperiosteal thickening. Sphenoid/posterior ethmoid cells: Normal development. Minor mucoperiosteal thickening dependently in the right sphenoid air cells. Mastoid air cells: Mastoid air cells are adequately aerated. Orbits: No abnormality of the orbits is identified. Nasal septum/turbinates: There is no significant nasal septal deviation. No abnormality of the nasal bone or anterior nasal spine. Cribriform plate/fovea ethmoidalis: Intact. The lamina papyracea appear intact. Visualized intracranial contents/surrounding soft tissues: No abnormality is identified. TMJ anatomy: Intact bilaterally. LEFT: Maxillary antrum/OMC: Patent ostiomeatal complex. Extensive polypoid appearing mucoperiosteal thickening fills the inferior left maxillary sinus. Frontal/anterior ethmoid cells: Normal development. Mild mucoperiosteal thickening. Consolidation of the left frontal air cells. Sphenoid/posterior ethmoid cells:] Normal development and aeration. No significant mucoperiosteal thickening. Mastoid air cells: Mastoid air cells are adequately aerated. Impression: 1. Negative anatomic survey of the paranasal sinuses. 2. Mucous retention cysts or polyps in the maxillary sinuses, larger on the left. 3. Consolidation of the left frontal air cells. 4. Mucoperiosteal thickening in the right bulla. All CT scans at this institution are performed using dose optimization techniques as appropriate for the performed exam including the following: Automated exposure control Adjustment of the mA and/or kV according to patient size Use of iterative reconstruction technique dictated on: 11/10/2023 3:44 PM This report has been electronically signed and approved by the interpreting Radiologist. Electronically Signed Rivera Bowers M.D. 2023-11-10 15:47:32 Normal Not Available Comment on above: Order Comment: CT Ma xillofacial WO, [employer] Protocol at [facility] @ 11/11. Please call patient to schedule. CHRONIC SINUSITIS, MUCOUS RETENTION CYST OF MAXILLARY SINUS Prost Spec Ag,Freeon 022 PSA, Free <0.1 Normal [facility] Comment on above: Performed By: #### P SAF, FT4, LIPR ####[place] [id number] [place] [id number] [facility] Director: Nir Mckeon MD#### CK, CP, MG, URI, CDP, TSH ####[address] [place] [id number] [facility] Director: James Fay MD PSA, Percent Free 20.0 % Normal [facility] Comment on above: Result Comment: The free PSA percentage is an aid in distinguishing prostate cancer from benign prostatic conditions in men age 50 and older with a total PSA between 3 and 10 ng/mL and negative digital rectal examination findings. Performed By: #### P SAF, FT4, LIPR ####[place] [address] [place] [address] [facility] Director: Nir Mckeon MD#### CK, CP, MG, URI, CDP, TSH ####[address] [place] [address] lab Director: James Fay MD Prostatic Spec. Ag 0.2 ug/L Normal 0.0-4.0 [facility] Comment on above: Result Comment: Siemens Immulite 2000 immunometric chemiluminescent assay is used. Results obtained with different assay methods or instruments cannot be used interchangeably. Performed By: #### P SAF, FT4, LIPR ####[address] [id number] Lab Director: Nir Mckeon MD#### CK, CP, MG, URI, CDP, TSH ####[address] [place] [address] Lab Director: James Fay MD Lipid Profileon 01-16-2022 Cholesterol [Mass/Vol] 146 mg/dL Normal <200 [facility] Comment on above: Result Comment: Cholesterol Guidelines: <200 Desirable 200-240 Borderline >240 Undesirable Performed By: #### P SAF, FT4, LIPR #### [address] [address] Compressor Engineer: Nir Mckeon MD #### CK, CP, MG, URI, CDP, TSH #### [address] [place] [id number] Compressor Engineer: James Fay MD Cholesterol in HDL [Mass/Vol] 37 mg/dL Low >40 [facility] Comment on above: Result Comment: HDL Guidelines: <40 Undesirable 40-59 Borderline >59 Desirable Performed By: #### P SAF, FT4, LIPR #### [address] [id number] Compressor Engineer: Nir Mckeon MD #### CK, CP, MG, URI, CDP, TSH #### [address] [place] [id number] Compressor Engineer: James Fay MD Cholesterol in LDL [Mass/Vol] 97 mg/dL Normal 0-130 [facility] Comment on above: Result Comment: LDL Guidelines: <100 Desirable 100-129 Near to/above Desirable 130-159 Borderline >159 Undesirable Direct (measured) LDL and calculated LDL are not interchangeable tests. Performed By: #### P SAF, FT4, LIPR #### [address] [address] Compressor Engineer: Nir Mckeon MD #### CK, CP, MG, URI, CDP, TSH #### [facility] [address] [place] [address] [place] [address] Compressor Engineer: James Fay MD Cholesterol.total/Choles terol in HDL [Mass ratio] 3.9 {ratio} Normal <5 [facility] Comment on above: Performed By: #### P SAF, FT4, LIPR #### [address] [address] Compressor Engineer: Nir Mckeon MD #### CK, CP, MG, URI, CDP, TSH #### [address] [place] [address] Compressor Engineer: James Fay MD Triglyceride [Mass/Vol] 60 mg/dL Normal <150 M [facility] Comment on above: Result Comment: Triglyceride Guidelines: <150 Desirable 150-199 Borderline 200-499 High >499 Very high Based on AHA Guidelines for fasting triglyceride, December 2011. Performed By: #### P SAF, FT4, LIPR #### [address] [address] Compressor Engineer: Nir Mckeon MD #### CK, CP, MG, URI, CDP, TSH #### [address] [place] [address] Compressor Engineer: James Fay MD Thyroxine, Freeon 01-16-2022 Thyroxine, Free 1.18 ng/dL Normal 0.93-1.70 [facility] Comment on above: Performed By: #### P SAF, FT4, LIPR #### [address] [address] Compressor Engineer: Nir Mckeon MD #### CK, CP, MG, URI, CDP, TSH #### [address] [place] [address] Compressor Engineer: James Fay MD CBC with Auto Differentialon 01-15-2022 Absolute Eos # 0.08 [facility] Absolute Immature Granulocyte [facility] Absolute Lymph # 0.96 Low [facility] Absolute [place] # 0.51 [facility] Basophils (Bld) [#/Vol] 0.06 10*3/uL [facility] Basophils/100 WBC (Bld) 1 % 0 - 2 % [facility] Eosinophils/100 WBC (Bld) 1 % 1 - 4 % [facility] Hematocrit (Bld) [Volume fraction] 38.1 % Low 40.7 - 50.3 % [facility] Hemoglobin (Bld) [Mass/Vol] 12.9 g/dL Low 13.0 - 17.0 g/dL [facility] Immature granulocytes/100 WBC (Bld) 0 % 0 [facility] Interpretation and review of laboratory results Abnormal [facility] Lymphocytes/100 WBC (Bld) 15 % Low 24 - 43 % [facility] MCH (RBC) [Entitic mass] 30.3 pg 25. 2 - 33.5 pg [facility] MCHC (RBC) [Mass/Vol] 33.9 g/dL 28.4 - 34.8 g/dL [facility] MCV (RBC) [Entitic vol] 89.4 fL 82.6 - 102.9 fL [facility] Monocytes/100 WBC (Bld) 8 % 3 - 12 % [facility] NRBC Automated 0.0 0.0 per 100 WBC [facility] Platelet distribution width (Bld) [Ratio] 12.2 % 11.8 - 14.4 % [facility] Platelet mean volume (Bld) [Entitic vol] 10.7 fL 8.1 - 13.5 fL [facility] Platelets (Bld) [#/Vol] 154 10*3/uL [facility] RBC (Bld) [#/Vol] 4.26 10*6/uL 4.21 - 5.7 7 m/uL [facility] Segmented neutrophils/100 WBC (Bld) 75 % High 36 - 65 % [facility] Segs Absolute 4.69 [facility] WBC (Bld) [#/Vol] 6.3 10*3/uL [facility] CBC with Diffon 01-15-2022 Abs. Basophil 0.06 k/uL Normal 0.00-0.20 [facility] Comment on above: Performed By: #### P SAF, FT4, LIPR #### [address] [address] Compressor Engineer: Nir Mckeon MD #### CK, CP, MG, URI, CDP, TSH #### [address] [place] [id number] Compressor Engineer: James Fay MD Abs.Imm.Granulocyte <0.03 Normal 0.00-0.30 [facility] Comment on above: Performed By: #### P SAF, FT4, LIPR #### [place] [address] Compressor Engineer: Nir Mckeon MD #### CK, CP, MG, URI, CDP, TSH #### [address] [place] [address] Compressor Engineer: James Fay MD Abs.Neutrophil (Seg) 4.69 k/uL Normal 1.50-8.10 [facility] Comment on above: Performed By: #### P SAF, FT4, LIPR #### [place] [address] Compressor Engineer: Nir Mckeon MD #### CK, CP, MG, URI, CDP, TSH #### [address] [place] [address] Compressor Engineer: James Fay MD Basophils/100 WBC (Bld) 1 % Normal 0-2 M [facility] Comment on above: Performed By: #### P SAF, FT4, LIPR #### [address] [id number] Compressor Engineer: Nir Mckeon MD #### CK, CP, MG, URI, CDP, TSH #### [address] [place] [address] Compressor Engineer: James Fay MD Eosinophils (Bld) [#/Vol] 0.08 10*3/uL Normal 0.00-0.44 [facility] Comment on above: Performed By: #### P SAF, FT4, LIPR #### [address] [address] Compressor Engineer: Nir Mckeon MD #### CK, CP, MG, URI, CDP, TSH #### [address] [place] [id number] Compressor Engineer: James Fay MD Eosinophils/100 WBC (Bld) 1 % Normal 1-4 [facility] Comment on above: Performed By: #### P SAF, FT4, LIPR #### [address] [id number] Compressor Engineer: Nir Mckeon MD #### CK, CP, MG, URI, CDP, TSH #### [address] [place] [id number] Compressor Engineer: James Fay MD Erythrocyte distribution width (RBC) [Ratio] 12.2 % Normal 11.8-14.4 [facility] Comment on above: Performed By: #### P SAF, FT4, LIPR #### [address] [id number] Compressor Engineer: Nir Mckeon MD #### CK, CP, MG, URI, CDP, TSH #### [facility] [address] [place] [address] Dr. [place] [id number] Compressor Engineer: James Fay MD Hematocrit (Bld) [Volume fraction] 38.1 % Low 40.7-50.3 [facility] Comment on above: Performed By: #### P SAF, FT4, LIPR #### [place] [address] Compressor Engineer: Nir Mckeon MD #### CK, CP, MG, URI, CDP, TSH #### [address] [place] [id number] Compressor Engineer: James Fay MD Hemoglobin (Bld) [Mass/Vol] 12.9 g/dL Low 13.0-17.0 [facility] Comment on above: Performed By: #### P SAF, FT4, LIPR #### [place] [address] Compressor Engineer: Nir Mckeon MD #### CK, CP, MG, URI, CDP, TSH #### [address] [place] [id number] Compressor Engineer: James Fay MD Immature granulocytes/100 WBC (Bld) 0 % Normal 0 [facility] Comment on above: Performed By: #### P SAF, FT4, LIPR #### [place] [address] Compressor Engineer: Nir Mckeon MD #### CK, CP, MG, URI, CDP, TSH #### [address] [place] [id number] Compressor Engineer: James Fay MD Lymphocytes (Bld) [#/Vol] 0.96 10*3/uL Low 1.10-3.70 [facility] Comment on above: Performed By: #### P SAF, FT4, LIPR #### [place] [id number] Compressor Engineer: Nir Mckeon MD #### CK, CP, MG, URI, CDP, TSH #### [place] [address] [place], [place] [id number] Compressor Engineer: James Fay MD Lymphocytes/100 WBC (Bld) 15 % Low 24-43 [facility] Comment on above: Performed By: #### P SAF, FT4, LIPR #### [address] [address] Compressor Engineer: Nir Mckeon MD #### CK, CP, MG, URI, CDP, TSH #### [facility] [address] [place] [id number] Compressor Engineer: James Fay MD MCH (RBC) [Entitic mass] 30.3 pg Normal 25.2-33.5 [facility] Comment on above: Performed By: #### P SAF, FT4, LIPR #### [address] [address] Compressor Engineer: Nir Mckeon MD #### CK, CP, MG, URI, CDP, TSH #### [address] [place] [id number] Compressor Engineer: James Fay MD MCHC (RBC) [Mass/Vol] 33.9 g/dL Normal 28.4-34.8 [facility] Comment on above: Performed By: #### P SAF, FT4, LIPR #### [address] [address] Compressor Engineer: Nir Mckeon MD #### CK, CP, MG, URI, CDP, TSH #### [address] [place] [facility]83 Compressor Engineer: James Fay MD MCV (RBC) [Entitic vol] 89.4 fL Normal 82.6-102.9 M [facility] Comment on above: Performed By: #### P SAF, FT4, LIPR #### [address] [address] Compressor Engineer: Nir Mckeon MD #### CK, CP, MG, URI, CDP, TSH #### [address] [place], [place] [id number] Compressor Engineer: James Fay MD Monocytes (Bld) [#/Vol] 0.51 10*3/uL Normal 0.10-1.20 [facility] Comment on above: Performed By: #### P SAF, FT4, LIPR #### [address] [address] Compressor Engineer: Nir Mckeon MD #### CK, CP, MG, URI, CDP, TSH #### [address] [place] [id number] Compressor Engineer: aJmes Fay MD Monocytes/100 WBC (Bld) 8 % Normal 3-12 M [facility] Comment on above: Performed By: #### P SAF, FT4, LIPR #### [address] [id number] Compressor Engineer: Nir Mckeon MD #### CK, CP, MG, URI, CDP, TSH #### [address] [place], [facility]83 Compressor Engineer: James Fay MD Neutrophil (Seg) 75 % High 36-65 [facility] Comment on above: Performed By: #### P SAF, FT4, LIPR #### [address] [address] Compressor Engineer: Nir Mckeon MD #### CK, CP, MG, URI, CDP, TSH #### [address] [place] [address] Compressor Engineer: James Fay MD NRBC Automated 0.0 per 100 WBC Normal 0.0 [facility] Comment on above: Performed By: #### P SAF, FT4, LIPR #### [address] [address] Compressor Engineer: Nir Mckeon MD #### CK, CP, MG, URI, CDP, TSH #### [address] [place] [id number] Compressor Engineer: James Fay MD Platelet mean volume (Bld) [Entitic vol] 10.7 fL Normal 8.1-13.5 [facility] Comment on above: Performed By: #### P SAF, FT4, LIPR #### [place] [address] Compressor Engineer: Nir Mckeon MD #### CK, CP, MG, URI, CDP, TSH #### [address] [place] [id number] Compressor Engineer: James Fay MD Platelets (Bld) [#/Vol] 154 10*3/uL Normal 138-453 [facility] Comment on above: Performed By: #### P SAF, FT4, LIPR #### [place] [address] Compressor Engineer: Nir Mckeon MD #### CK, CP, MG, URI, CDP, TSH #### [address] [place] [address] Compressor Engineer: James Fay MD RBC (Bld) [#/Vol] 4.26 10*6/uL Normal 4.21-5.77 [facility] Comment on above: Performed By: #### P SAF, FT4, LIPR #### [address] [address] Compressor Engineer: Nir Mckeon MD #### CK, CP, MG, URI, CDP, TSH #### [address] [place] [address] Compressor Engineer: James Fay MD WBC (Bld) [#/Vol] 6.3 10*3/uL Normal 3.5-11.3 [facility] Comment on above: Performed By: #### P SAF, FT4, LIPR #### [facility] [address] [place], [place] [id number] Compressor Engineer: Nir Mckeon MD #### CK, CP, MG, URI, CDP, TSH #### [address] [place] [address] Compressor Engineer: James Fay MD CKon 01-15-2022 CK [Catalytic activity/Vol] 329 U/L High 39 - 308 U/L [facility] Comp Metabolic Profon 2021 Albumin [Mass/Vol] 4.2 g/dL Normal 3.5-5.2 [facility] Comment on above: Performed By: #### P SAF, FT4, LIPR #### [facility] [address] [place], [place] 2655208 Compressor Engineer: Nir Mckeon MD #### CK, CP, MG, URI, CDP, TSH #### [address] [place] [address] Compressor Engineer: James Fay MD Albumin/Glob Ratio 1.6 Normal 1.0-2.5 [facility] Comment on above: Performed By: #### P SAF, FT4, LIPR #### [facility] [address] [place], [place] [id number] Compressor Engineer: Nir Mckeon MD #### CK, CP, MG, URI, CDP, TSH #### [address] [place] [address] Compressor Engineer: James Fay MD Alkaline Phos 49 U/L Normal 40-129 [facility] Comment on above: Performed By: #### P SAF, FT4, LIPR #### [address] [address] Compressor Engineer: Nir Mckeon MD #### CK, CP, MG, URI, CDP, TSH #### [address] [place], [place] [id number] Compressor Engineer: James Fay MD ALT [Catalytic activity/Vol] 42 U/L High 5-41 [facility] Comment on above: Performed By: #### P SAF, FT4, LIPR #### [address] [address] Compressor Engineer: Nir Mckeon MD #### CK, CP, MG, URI, CDP, TSH #### [address] [place] [address] Compressor Engineer: James Fay MD Anion gap [Moles/Vol] 9 mmol/L Normal 9-17 [facility] Comment on above: Performed By: #### P SAF, FT4, LIPR #### [address] [id number] Compressor Engineer: Nir Mckeon MD #### CK, CP, MG, URI, CDP, TSH #### [address] [place] [address] Compressor Engineer: James Fay MD AST [Catalytic activity/Vol] 30 U/L Normal <40 [facility] Comment on above: Performed By: #### P SAF, FT4, LIPR #### [address] [id number] Compressor Engineer: Nir Mckeon MD #### CK, CP, MG, URI, CDP, TSH #### [address] [place] [address] Compressor Engineer: James Fay MD Bilirubin [Mass/Vol] 0.9 mg/dL Normal 0.3-1.2 [facility] Comment on above: Performed By: #### P SAF, FT4, LIPR #### [address] [id number] Compressor Engineer: Nir Mckeon MD #### CK, CP, MG, URI, CDP, TSH #### [address] [place] [address] Compressor Engineer: James Fay MD BUN/CRE Ratio 15 Normal 9-20 [facility] Comment on above: Performed By: #### P SAF, FT4, LIPR #### [address] [id number] Compressor Engineer: Nir Mckeon MD #### CK, CP, MG, URI, CDP, TSH #### [address] [place] [address] Compressor Engineer: James Fay MD Calcium [Mass/Vol] 9.3 mg/dL Normal 8.6-10.4 [facility] Comment on above: Performed By: #### P SAF, FT4, LIPR #### [place] [id number] Compressor Engineer: Nir Mckeon MD #### CK, CP, MG, URI, CDP, TSH #### [address] [place] [id number] Compressor Engineer: James Fay MD Chloride [Moles/Vol] 103 mmol/L Normal 98-107 [facility] Comment on above: Performed By: #### P SAF, FT4, LIPR #### [address] [id number] Compressor Engineer: Nir Mckeon MD #### CK, CP, MG, URI, CDP, TSH #### [address] [place] [address] Compressor Engineer: James Fay MD CO2 [Moles/Vol] 26 mmol/L Normal 20-31 [facility] Comment on above: Performed By: #### P SAF, FT4, LIPR #### [id number] [place], [place] 1976308 Compressor Engineer: Nir Mckeon MD #### CK, CP, MG, URI, CDP, TSH #### [address] [place] [address] Compressor Engineer: James Fay MD Creatinine [Mass/Vol] 0.82 mg/dL Normal 0.70-1.20 [facility] Comment on above: Performed By: #### P SAF, FT4, LIPR #### [address] [id number] Compressor Engineer: Nir Mckeon MD #### CK, CP, MG, URI, CDP, TSH #### [address] [place] [address] Compressor Engineer: James Fay MD GFR/1.73 sq M.predicted among non-blacks MDRD (S/P/Bld) [Vol rate/Area] mL/min/{1.73_m2} Normal >60 [facility] Comment on above: Result Comment: Effective [...] By: #### P SAF, FT4, LIPR #### [address] [id number] Compressor Engineer: Nir Mckeon MD #### CK, CP, MG, URI, CDP, TSH #### [address] [place], [place] [id number] Compressor Engineer: James Fay MD Glucose [Mass/Vol] 113 mg/dL High 70-99 [facility] Comment on above: Performed By: #### P SAF, FT4, LIPR #### [address] [id number] Compressor Engineer: Nir Mckeon MD #### CK, CP, MG, URI, CDP, TSH #### [address] [place], [place] [id number] Compressor Engineer: James Fay MD Potassium [Moles/Vol] 4.1 mmol/L Normal 3.7-5.3 [facility] Comment on above: Performed By: #### P SAF, FT4, LIPR #### [address] [address] Compressor Engineer: Nir Mckeon MD #### CK, CP, MG, URI, CDP, TSH #### [address] [place], [place] [id number] Compressor Engineer: James Fay MD Protein [Mass/Vol] 6.8 g/dL Normal 6.4-8.3 [facility] Comment on above: Performed By: #### P SAF, FT4, LIPR #### [address] [id number] Compressor Engineer: Nir Mckeon MD #### CK, CP, MG, URI, CDP, TSH #### [address] [place] [address] Compressor Engineer: James Fay MD Sodium [Moles/Vol] 138 mmol/L Normal 135-144 [facility] Comment on above: Performed By: #### P SAF, FT4, LIPR #### [address] [id number] Compressor Engineer: Nir Mckeon MD #### CK, CP, MG, URI, CDP, TSH #### [facility] [address] [place] [address] Compressor Engineer: James Fay MD Urea nitrogen [Mass/Vol] 12 mg/dL Normal 6-20 [facility] Comment on above: Performed By: #### P SAF, FT4, LIPR #### [facility] [address] [place], [place] [id number] Compressor Engineer: Nir Mckeon MD #### CK, CP, MG, URI, CDP, TSH #### [facility] [address] [place] [address] Compressor Engineer: James Fay MD Comprehensive Metabolic Pane [facility] 01-15-2022 Albumin [Mass/Vol] 4.2 g/dL 3.5 - 5.2 g/dL [facility] Albumin/Globulin [Mass ratio] 1.6 {ratio} 1.0 - 2.5 [facility] ALP (Bld) [Catalytic activity/Vol] 49 U/L 40 - 129 U/L [facility] ALT [Catalytic activity/Vol] 42 U/L High 5 - 41 U/L [facility] Anion gap [Moles/Vol] 9 mmol/L 9 - 17 mmol/L [facility] AST [Catalytic activity/Vol] 30 U/L NINF - 40 U/L [facility] Bilirubin [Mass/Vol] 0.9 mg/dL 0.3 - 1 .2 mg/dL [facility] Calcium [Mass/Vol] 9.3 mg/dL 8.6 - 10. 4 mg/dL [facility] Chloride [Moles/Vol] 103 mmol/L 98 - 10 7 mmol/L [facility] CO2 [Moles/Vol] 26 mmol/L 20 - 31 mmol/L [facility] Creatinine [Mass/Vol] 0.82 mg/dL 0.70 - 1.20 mg/dL [facility] GFR/1.73 sq M.predicted MDRD (S/P/Bld) [Vol rate/Area] - PINF [facility] Comment on above: Effective Dec 07, 2021 [...] 113 mg/dL High 70 - 99 mg/dL [facility] Potassium [Moles/Vol] 4.1 mmol/L 3.7 - 5.3 mmol/L [facility] Protein [Mass/Vol] 6.8 g/dL 6.4 - 8.3 g/dL [facility] Sodium [Moles/Vol] 138 mmol/L 135 - 144 mmol/L [facility] Urea nitrogen (BldV) [Mass/Vol] 12 mg/dL 6 - 20 mg/dL [facility] Urea nitrogen/Creatinine (Bld) [Mass ratio] 15 9 - 20 [facility] Creatine Kinaseon 01-15-2022 CK [Catalytic activity/Vol] 329 U/L High 39-308 [facility] Comment on above: Performed By: #### P SAF, FT4, LIPR #### [facility] [address] [place] [address] Compressor Engineer: Nir Mckeon MD #### CK, CP, MG, URI, CDP, TSH #### [facility] [address] [place] [address] Compressor Engineer: aJmes Fay MD Lipid Panelon 01-15-2022 Cholesterol [Mass/Vol] 146 mg/dL NINF - 200 mg/dL [facility] Comment on above: Cholesterol Guidelines: <200 Desirable 200-240 Borderline >240 Undesirable Cholesterol in HDL [Mass/Vol] 37 mg/dL Low 40 - PINF mg/dL [facility] Comment on above: HDL Guidelines: <40 Undesirable 40-59 Borderline >59 Desirable Cholesterol in LDL [Mass/Vol] 97 mg/dL 0 - 130 mg/dL [facility] Comment on above: LDL Guidelines: <100 Desirable 100-129 Near to/above Desirable 130-159 Borderline >159 Undesirable Direct (measured) LDL and calculated LDL are not interchangeable tests. Cholesterol.total/Choles terol in HDL [Mass ratio] 3.9 {ratio} NINF - 5 [facility] Interpretation and review of laboratory results Abnormal [facility] Triglyceride [Mass/Vol] 60 mg/dL NINF - 150 mg/dL [facility] Comment on above: Triglyceride Guidelines: <150 Desirable 150-199 Borderline 200-499 High >499 Very high Based on AHA Guidelines for fasting triglyceride, December 2011. [facility] Magnesiumon 01-15-2022 Magnesium [Mass/Vol] 1.7 mg/dL Normal 1.6-2.6 [facility] Comment on above: Performed By: #### P SAF, FT4, LIPR #### [facility] [place] [address] Compressor Engineer: Nir Mckeon MD #### CK, CP, MG, URI, CDP, TSH #### [facility] [address] [place] [address] Compressor Engineer: James Fay MD Magnesium [Mass/Vol] 1.7 mg/dL 1.6 - 2 .6 mg/dL [facility] No Panel Informationon 01-15 Interpretation and review of laboratory results Abnormal [facility] T4, Freeon 01-15-2022 Thyroxine, Free 1.18 ng/dL 0.93 - 1.70 ng/dL [facility] TSHon 01-15-2022 TSH Qn 0.69 m[IU]/L [facility] Thyroid Stim. Horm.on 2021 Thyroid Stim. Horm. 0.69 uIU/mL Normal 0.30-5.00 [facility] Comment on above: Performed By: #### P SAF, FT4, LIPR #### [facility] [place] [address] Compressor Engineer: Nir Mckeon MD #### CK, CP, MG, URI, CDP, TSH #### [facility] [address] [place] [address] Compressor Engineer: James Fay MD Uric Acidon 01-15-2022 Urate [Mass/Vol] 3.6 mg/dL Normal 3.4-7.0 [facility] Comment on above: Performed By: #### P SAF, FT4, LIPR #### [facility] [address] [place], [place] [id number] Compressor Engineer: Nir Mckeon MD #### CK, CP, MG, URI, CDP, TSH #### [facility] [address] [place] [address] Compressor Engineer: James Fay MD Urate [Mass/Vol] 3.6 mg/dL 3.4 - 7.0 mg/dL [facility] CT ABDOMEN PELVIS WO CONTRAS Ton 08-28-2021 [...] Antonio Bradley MD 08/28/21 Final result Normal [facility] Urinalysis, Routineon 2021 Bilirubin, SemiQt,Ur Negative Normal NEG [facility] Comment on above: Performed By: #### U A #### [facility] [address] [place] [address] Compressor Engineer: James Fay MD Blood, Urine Negative Normal NEG [facility] Comment on above: Performed By: #### U A #### [facility] [address] [place] [address] Compressor Engineer: James Fay MD Clarity (U) Clear Normal CLEAR [facility] Comment on above: Performed By: #### U A #### [facility] [address] [place] [address] Compressor Engineer: James Fay MD Color (U) Yellow Normal YEL [facility] Comment on above: Performed By: #### U A #### [facility] [address] [place] [address] Compressor Engineer: James Fay MD Glucose Ql (U) Negative Normal NEG [facility] Comment on above: Performed By: #### U A #### [facility] [address] [place] [address] Dr. [place], [place] [address] Compressor Engineer: James Fay MD Ketones Ql (U) Negative Normal NEG [facility] Comment on above: Performed By: #### U A #### [facility] [address] [place] [address] Dr. [place] [id number] Compressor Engineer: James Fay MD Leukocyte esterase Test strip Ql (U) Negative Normal NEG [facility] Comment on above: Performed By: #### U A #### [address] [place] [id number] Compressor Engineer: James Fay MD Nitrite,Ur Negative Normal NEG [facility] Comment on above: Performed By: #### U A #### [facility] [address] [place] [address] Dr. [place], [facility] Compressor Engineer: James Fay MD PH,Ur 6.0 Normal 5.0-9.0 [facility] Comment on above: Performed By: #### U A #### [address] [place] [id number] Compressor Engineer: James Fay MD Protein Ql (U) Negative Normal NEG [facility] Comment on above: Performed By: #### U A #### [facility] [address] [place] [address] Dr. [place] [id number] Compressor Engineer: James Fay MD Spec. [place],Ur 1.020 Normal 1.010-1.020 [facility] Comment on above: Performed By: #### U A #### [address] [place] [id number] Compressor Engineer: James Fay MD Urobilinogen,Ur Normal Normal NORM [facility] Comment on above: Performed By: #### U A #### [facility] [address] [place] [address] Compressor Engineer: James Fay MD C-Reactive ProteinOrdered By : Karri Sams on 01-03-2021 CRP [Mass/Vol] mg/L 0.0 - 5.0 mg/L [facility] Work Phone: [employer] Work Phone: CBC Auto DifferentialOrdered By: Karri Sams on 01-03-2021 Absolute Eos # 0.20 [facility] Work Phone: Absolute Immature Granulocyte <0.03 [facility] Work Phone: Absolute Lymph # 2.82 [facility] Work Phone: Absolute [place] # 0.55 [facility] Work Phone: Basophils (Bld) [#/Vol] 0.07 10*3/uL [facility] Work Phone: Basophils/100 WBC (Bld) 1 % 0 - 2 % [facility] Work Phone: Differential Type NOT REPORTED [facility] Phone: Eosinophils/100 WBC (Bld) 3 % 1 - 4 % [facility] Phone: Hematocrit (Bld) [Volume fraction] 41.0 % 40.7 - 50.3 % [facility] Work Phone: Hemoglobin.gastrointesti nal spec 1 Ql (Stl) 13.6 g/dL 13.0 - 17.0 g/dL [facility] Phone: Immature granulocytes/100 WBC (Bld) 0 % 0 [facility] Work Phone: Lymphocytes/100 WBC (Bld) 41 % 24 - 43 % [facility] Phone: MCH (RBC) [Entitic mass] 29.8 pg 25. 2 - 33.5 pg [facility] Work Phone: MCHC (RBC) [Mass/Vol] 33.2 g/dL 28.4 - 34.8 g/dL [employer] Phone: MCV (RBC) [Entitic vol] 89.7 fL 82.6 - 102.9 fL [employer] Phone: Monocytes/100 WBC (Bld) 8 % 3 - 12 % [facility] Work Phone: NRBC Automated 0.0 0.0 per 100 WBC [employer] Phone: Platelet distribution width (Bld) [Ratio] 12.6 % 11.8 - 14.4 % [employer] Phone: Platelet Estimate NOT REPORTED [employer] Phone: Platelet mean volume (Bld) [Entitic vol] 10.5 fL 8.1 - 13.5 fL [employer] Phone: Platelets (Bld) [#/Vol] 253 10*3/uL [employer] Phone: RBC (Bld) [#/Vol] 4.57 10*6/uL 4.21 - 5.7 7 m/uL [employer] Phone: RBC (Bld) [#/Vol] NOT REPORTED [employer] Phone: Segmented neutrophils/100 WBC (Bld) 47 % 36 - 65 % [employer] Work Phone: Segs Absolute 3.18 [employer] Work Phone: WBC (Bld) [#/Vol] 6.8 10*3/uL [employer] Work Phone: WBC (Bld) [#/Vol] NOT REPORTED [employer] Phone: Comprehensive Metabolic Pane lOrdered By: Karri Sams on 01-03-2021 Albumin [Mass/Vol] 4.4 g/dL 3.5 - 5.2 g/dL [employer] Phone: Albumin/Globulin [Mass ratio] 1.8 {ratio} [employer] Phone: ALP (Bld) [Catalytic activity/Vol] 51 U/L 40 - 129 U/L [employer] Phone: ALT [Catalytic activity/Vol] 43 U/L High 5 - 41 U/L [employer] Phone: Anion gap [Moles/Vol] 8 mmol/L Low 9 - 17 mmol/L [employer] Phone: AST [Catalytic activity/Vol] 22 U/L <40 [employer] Phone: Bilirubin [Mass/Vol] 1.00 mg/dL 0.3 - 1 .2 mg/dL [employer] Phone: Calcium [Mass/Vol] 9.6 mg/dL 8.6 - 10. 4 mg/dL [employer] Phone: Chloride [Moles/Vol] 103 mmol/L 98 - 10 7 mmol/L [employer] Phone: CO2 [Moles/Vol] 26 mmol/L 20 - 31 mmol/L [employer] Phone: Creatinine [Mass/Vol] 0.81 mg/dL 0.70 - 1.20 mg/dL [employer] Phone: Free PSA/Total PSA [Mass fraction] 6.9 g/dL 6.4 - 8.3 g/dL [employer] Phone: GFR >60 >60 mL/min [employer] Phone: GFR Non- >60 >60 mL/min [employer] Phone: Glucose [Mass/Vol] 113 mg/dL High 70 - 99 mg/dL [facility] [employer] Work Phone: Interpretation and review of laboratory results Abnormal [employer] Phone: Potassium [Moles/Vol] 4.4 mmol/L 3.7 - 5.3 mmol/L [employer] Phone: Sodium [Moles/Vol] 137 mmol/L 135 - 144 mmol/L [employer] Phone: Urea nitrogen (BldV) [Mass/Vol] 10 mg/dL 6 - 20 mg/dL [employer] Work Phone: Urea nitrogen/Creatinine (Bld) [Mass ratio] 12 [employer] Phone: FerritinOrdered By: Karri Sams on 01-03-2021 Ferritin 108 ug/L 30 - 400 ug/L [facility] Work Phone: HaptoglobinOrdered By: Zoie Sams on 01-03-2021 Haptoglobin 61 mg/dL 30 - 200 mg/dL [employer] Work Phone: Iron and TIBCOrdered By: Zhang Sams on 01-03-2021 Iron [Mass/Vol] 151 ug/dL 59 - 158 ug/dL [employer] Phone: Iron Saturation 49 % 20 - 55 % [facility] Work Phone: TIBC 309 ug/dL 250 - 450 ug/dL [employer] Phone: UIBC 158 ug/dL 112 - 347 ug/dL [employer] Work Phone: Laboratory - Chemistry and C hemistry - challengeOrdered By: Karri Sams on 01-03-2021 GFR/1.73 sq M.predicted MDRD (S/P/Bld) [Vol rate/Area] [employer] Phone: Comment on above: Average GFR for 40-4 9 years old: 99 mL/min/1.73sq m Chronic Kidney Disease: <60 mL/min/1.73sq m Kidney failure: <15 mL/min/1.73sq m eGFR calculated using average adult body mass. Additional eGFR calculator available at: http://www.[employer]/multiple_crcl_2012.htm Stage 1: Some kidney damage normal GFR Stage 2: Mild kidney damage GFR 60-89 Stage 3: Moderate kidney damage GFR 30-59 Stage 4: Severe kidney damage GFR 15-29 Stage 5: Severe kidney damage GFR <15 ESRD - chronic treatment by dialysis or transplant Lactate DehydrogenaseOrdered By: Karri Sams on 01-03-2021 LD 190 U/L 135 - 225 U/L [employer] Work Phone: No Panel InformationOrdered By: Karri Sams on 01-03-2021 [employer] Work Phone: [facility] Work Phone: [facility] Work Phone: [facility] Work Phone: ReticulocytesOrdered By: Zhang Sams on 01-03-2021 Absolute Retic # 0.060 [facility] Work Phone: Immature Retic Fract 5.4 % 2.7 - 18.3 % [facility] [employer] Work Phone: Retic % 1.3 % 0.5 - 1.9 % [facility] [employer] Work Phone: Retic Hemoglobin 35.0 pg 28.2 - 35.7 pg [facility] Work Phone: Sedimentation RateOrdered By : Karri Sams on 01-03-2021 Sed Rate 7 mm 0 - 20 mm [facility] Work Phone: [employer] Work Phone: TransferrinOrdered By: Zoie Sams on 01-03-2021 Transferrin [Mass/Vol] 268 mg/dL 200 - 360 mg/dL [facility] Work Phone: Vitamin B12 & FolateOrdered By: Karri Sams on 01-03-2021 Cobalamin (Vitamin B12) [Mass/Vol] 521 pg/mL 232 - 1245 pg/mL [employer] Work Phone: Folate 16.3 ng/mL >4.8 [employer] Phone: [employer] Work Phone: CBC Auto DifferentialOrdered By: Ayan Adler on 08-09-2020 Absolute Eos # 0.23 [facility] Work Phone: Absolute Immature Granulocyte <0.03 [employer] Work Phone: Absolute Lymph # 3.73 High [facility] Work Phone: Absolute [place] # 0.69 [facility] Work Phone: Basophils (Bld) [#/Vol] 0.08 10*3/uL [employer] Phone: Basophils/100 WBC (Bld) 1 % 0 - 2 % [facility] Work Phone: Differential Type NOT REPORTED [employer] Phone: Eosinophils/100 WBC (Bld) 3 % 1 - 4 % [employer] Phone: Hematocrit (Bld) [Volume fraction] 41.3 % 40.7 - 50.3 % [employer] Phone: Hemoglobin.gastrointesti nal spec 1 Ql (Stl) 13.9 g/dL 13.0 - 17.0 g/dL [employer] Phone: Immature granulocytes/100 WBC (Bld) 0 % 0 [employer] Phone: Interpretation and review of laboratory results Abnormal [employer] Phone: Lymphocytes/100 WBC (Bld) 47 % High 24 - 43 % [employer] Phone: MCH (RBC) [Entitic mass] 30.8 pg 25. 2 - 33.5 pg [employer] Work Phone: MCHC (RBC) [Mass/Vol] 33.7 g/dL 28.4 - 34.8 g/dL [employer] Phone: MCV (RBC) [Entitic vol] 91.4 fL 82.6 - 102.9 fL [employer] Phone: Monocytes/100 WBC (Bld) 9 % 3 - 12 % [facility] Work Phone: NRBC Automated 0.0 0.0 per 100 WBC [employer] Phone: Platelet distribution width (Bld) [Ratio] 12.2 % 11.8 - 14.4 % [employer] Phone: Platelet Estimate NOT REPORTED [employer] Phone: Platelet mean volume (Bld) [Entitic vol] 10.5 fL 8.1 - 13.5 fL [employer] Phone: Platelets (Bld) [#/Vol] 244 10*3/uL [employer] Work Phone: RBC (Bld) [#/Vol] 4.52 10*6/uL 4.21 - 5.7 7 m/uL [employer] Work Phone: RBC (Bld) [#/Vol] NOT REPORTED [employer] Phone: Segmented neutrophils/100 WBC (Bld) 40 % 36 - 65 % [employer] Work Phone: Segs [employer] 3[employer] Work Phone: WBC (Bld) [#/Vol] 7.9 10*3/uL [employer] Work Phone: WBC (Bld) [#/Vol] NOT REPORTED [employer] Phone: [employer] Work Phone: CKOrdered By: Ayan manrique 08-09-2020 CK [Catalytic activity/Vol] 231 U/L 39 - 308 U/L [employer] Phone: Comprehensive Metabolic Pane lOrdered By: Ayan Adler on 08-09-2020 Albumin [Mass/Vol] 4.1 g/dL 3.5 - 5.2 g/dL [employer] Phone: Albumin/Globulin [Mass ratio] 1.4 {ratio} [employer] Phone: ALP (Bld) [Catalytic activity/Vol] 50 U/L 40 - 129 U/L [employer] Phone: ALT [Catalytic activity/Vol] 29 U/L 5 - 41 U/L [employer] Phone: Anion gap [Moles/Vol] 8 mmol/L Low 9 - 17 mmol/L [employer] Phone: AST [Catalytic activity/Vol] 19 U/L <40 [employer] Phone: Bilirubin [Mass/Vol] 0.94 mg/dL 0.3 - 1 .2 mg/dL [employer] Phone: Calcium [Mass/Vol] 9.6 mg/dL 8.6 - 10. 4 mg/dL [employer] Phone: Chloride [Moles/Vol] 102 mmol/L 98 - 10 7 mmol/L [employer] Phone: CO2 [Moles/Vol] 28 mmol/L 20 - 31 mmol/L [employer] Phone: Creatinine [Mass/Vol] 0.94 mg/dL 0.70 - 1.20 mg/dL [employer] Phone: Free PSA/Total PSA [Mass fraction] 7.0 g/dL 6.4 - 8.3 g/dL [employer] Phone: GFR >60 >60 mL/min [employer] Phone: GFR Non- >60 >60 mL/min [facility] [employer] Work Phone: Glucose [Mass/Vol] 93 mg/dL 70 - 99 mg/dL [facility] [employer] Work Phone: Interpretation and review of laboratory results Abnormal [facility] [employer] Work Phone: Potassium [Moles/Vol] 4.4 mmol/L 3.7 - 5.3 mmol/L [facility] [employer] Phone: Sodium [Moles/Vol] 138 mmol/L 135 - 144 mmol/L [facility] [employer] Phone: Urea nitrogen (BldV) [Mass/Vol] 12 mg/dL 6 - 20 mg/dL [facility] [employer] Phone: Urea nitrogen/Creatinine (Bld) [Mass ratio] 13 [facility] [employer] Work Phone: Iron and TIBCOrdered By: Wendy Adler on 08-09-2020 Iron [Mass/Vol] 102 ug/dL 59 - 158 ug/dL [facility] [employer] Work Phone: Iron Saturation 35 % 20 - 55 % [facility] Work Phone: TIBC 292 ug/dL 250 - 450 ug/dL [facility] [employer] Phone: UIBC 190 ug/dL 112 - 347 ug/dL [facility] [employer] Phone: [facility] [employer] Work Phone: Laboratory - Chemistry and C hemistry - challengeOrdered By: Ayan Adler on 08-09-2020 GFR/1.73 sq M.predicted MDRD (S/P/Bld) [Vol rate/Area] [facility] [employer] Phone: Comment on above: Average GFR for 40-4 9 years old: 99 mL/min/1.73sq m Chronic Kidney Disease: <60 mL/min/1.73sq m Kidney failure: <15 mL/min/1.73sq m eGFR calculated using average adult body mass. Additional eGFR calculator available at: http://www.[employer]/multiple_crcl_2012.htm Stage 1: Some kidney damage normal GFR Stage 2: Mild kidney damage GFR 60-89 Stage 3: Moderate kidney damage GFR 30-59 Stage 4: Severe kidney damage GFR 15-29 Stage 5: Severe kidney damage GFR <15 ESRD - chronic treatment by dialysis or transplant Lipid PanelOrdered By: Debora Adler on 08-09-2020 Cholesterol [Mass/Vol] 160 mg/dL <200 [facility] Phone: Comment on above: Cholesterol Guidelines: <200 Desirable 200-240 Borderline >240 Undesirable Cholesterol in HDL [Mass/Vol] 31 mg/dL Low >40 [employer] Phone: Comment on above: HDL Guidelines: <40 Undesirable 40-59 Borderline >59 Desirable Cholesterol in LDL [Mass/Vol] 99 mg/dL 0 - 130 mg/dL [employer] Phone: Comment on above: LDL Guidelines: <100 Desirable 100-129 Near to/above Desirable 130-159 Borderline >159 Undesirable Direct (measured) LDL and calculated LDL are not interchangeable tests. Cholesterol in VLDL [Mass/Vol] NOT REPORTED 1 - 30 mg/dL [employer] Phone: Cholesterol.total/Choles terol in HDL [Mass ratio] 5.2 {ratio} High <5 [facility] Phone: Interpretation and review of laboratory results Abnormal [facility] Phone: Triglyceride [Mass/Vol] 149 mg/dL <150 [facility] Phone: Comment on above: Triglyceride Guidelines: <150 Desirable 150-199 Borderline 200-499 High >499 Very high Based on AHA Guidelines for fasting triglyceride, December 2011. [employer] Phone: MagnesiumOrdered By: Ayan Adler on 08-09-2020 Magnesium [Mass/Vol] 2.2 mg/dL 1.6 - 2 .6 mg/dL [employer] Phone: No Panel InformationOrdered By: Ayan Adler on 08-09-2020 [employer] Phone: [employer] Phone: TSH with ReflexOrdered By: Nydia Adler on 08-09-2020 TSH Qn 1.68 m[IU]/L [employer] Phone: Uric AcidOrdered By: Ayan Gallegosik on 08-09-2020 Urate [Mass/Vol] 4.8 mg/dL 3.4 - 7.0 mg/dL [employer] Phone: Vitamin B12 & FolateOrdered By: Ayan Adler on 08-09-2020 Cobalamin (Vitamin B12) [Mass/Vol] 529 pg/mL 232 - 1245 pg/mL [employer] Phone: Folate 16.7 ng/mL >4.8 [employer] Phone: Ambulatory Clinical Summaryo n 05-26-2020 Ambulatory Clinical Summary {[id number] Normal [facility] Patient Educationon 05-27-19 Patient Education Urology Testicular Self-Exam A self-examination [...] Reviewed: 01/17/2017 Elsevier Patient Education ? 2019 [employer] [facility] Urology Office/Clinic Noteon 05-26-2020 Urology Office/Clinic Note [...] office notified. Script sent to [facility] in [place]. All questions/concerns were discussed. Pt. to call the office if heencounters any issues prior. Pt. acknowledges understanding. 2. Nocturia (R35.1: Nocturia) 1x/night. Pt. is doing well overall w/ his urination at this time. I have reviewed the previous health record information and history for this pt. from Dr. Mathews. Follow-up With When Contact Information AMEENA RITCHIE, [place] [facility] [address] [place] [address]- [phone] Additional Instructions: prn Patient Education Testicular Self-Exam I, Radha Olivares , personally scribed for Dr. Mathews on 05/26/2020 16:41:06. . Documentation recorded by the scribe, Radha Olivares, accurately reflects the services(s) I performed and decisions made by me. Authenticated by Dr. Mathews on 05/26/2020 16:45:17. Problem List/Past Medical History [...] Protein Urine Dipstick: Negative (05/26/20 15:58:00) Specific [place] Urine Dipstick: 1.015 (05/26/20 15:58:00) Urine Appearance Urine Dipstick: Clear (05/26/20 15:58:00) Urine Color Urine Dipstick: Light yellow (05/26/20 15:58:00) Urobilinogen Urine Dipstick: Normal 0.2-1 EU/dl (05/26/20 15:58:00) pH Urine Dipstick: 5.5 (05/26/20 15:58:00) Normal [facility] Comment on above: Result Comment: Elec tronically Signed By: Pascual MATHEWS MD\.br\Date and Time Signed: 05/26/20 16:45 EDT\.br\Electronically Co-Signed By: Radha Olivares MA\.br\Date and Time Co-Signed: 05/26/20 16:41 EDT Ambulatory Clinical Summaryo n 12-28-2019 Ambulatory Clinical Summary {[id number] Normal [facility] Patient Educationon 12-28-19 20 Patient Education [...] Document Reviewed: 06/05/2009 ExitCare? Patient Information ?2013 [employer]. [facility] Urology Office/Clinic Noteon 12-28-2019 Urology Office/Clinic Note [...] Only if needed [facility] [address] [place] [address] [phone] Additional Instructions: Patient Education Control and Sports-SportsMed [...] Use:., 10/29/2019 Family History Anemia: Mother. Normal [facility] Comment on above: Result Comment: Elec tronically Signed By: Pascual MATHEWS MD\.br\Date and Time Signed: 12/28/19 08:43 EDT\.br\Electronically Co-Signed By: Dayanna Kumar MA\.br\Date and Time Co-Signed: 12/28/19 08:42 EDT Provider Letteron 12-24-2019 Provider Letter December 24, 2019 MARCELO LOCKHART [address] [address] MARCELO LOCKHART 1975 Dear Marcelo, You missed your scheduled [...] do appreciate your understanding. Sincerely, [facility] [address] [facility], [place] [address] [facility] Operative Reporton 0 Operative Report [id number]# 1.00CD:127 [facility] Pathology Noteon 12-03-2019 Pathology Note [id number] #1.00CD:127 [facility] Deejay 11-30-2019 L Specimen: [id number] Received: 11/30/19-1313 Status: BALDO Waddell Num: [id number] Spec Type: Surgical Subm Dr: Pascual Mathews MD Tissues: A VAS DEFERENS - sterilization (RT VAS SEGMENT) B VAS DEFERENS - sterilization (LT VAS SEGMENT) Procedures: HE Stain/2, Gross/Micro L2/2 Patient Age/Sex Location Account Attending Physician Marcelo Lockhart/M CT [id number] Pascual Mathews MD SPEC NUM: [id number] RECD: 11/30/19 STATUS: BALDO WADDELL NUM: [id number] VIDA: 11/30/[address] [facility] [address]: Pascual Mathews MD ENTERED: 11/30/[address] [facility] [address]: Giancarlo Herrera [facility] SPEC TYPE: Surgical DEPT: S ORDERED: HE Stain/2, Gross/Micro L2/2 ORDERED: HE Stain/2, Gross/Micro L2/2 Pathological Diagnosis A. Right vas deferens, segmental vasectomy: Segment of vas deferens with complete and patent lumen. B. Left vas deferens, segmental vasectomy: Segment of vas deferens with complete and patent lumen. Specimen Clinical Information [facility] A. Received in formalin labeled with the patient's name, number and right vas segment is a 1.1 cm in length by 0.3-0.4 cm in diameter ivey-pink tubular tissue fragment, which is submitted in toto to be cut at embedding. Entirely submitted in one cassette labeled A1. (SM/YJ) B. Received in formalin labeled with the patient's name, number and left vas segment is a 1.6 cm in length by 0.3 cm in diameter ivey-pink tubular tissue fragment, which is submitted in toto cut at embedding. Entirely submitted in one cassette labeled B1. (SM/YJ) Specimen: [id number] Received: 11/30/19 Status: BALDO Waddell Num: [id number] Spec Type: Surgical Subm Dr: Pascual Mathews MD Tissues: A VAS DEFERENS - sterilization (RT VAS SEGMENT) B VAS DEFERENS - sterilization (LT VAS SEGMENT) Procedures: HE Stain/2, Sydnee/Niraj L2/2 Patient: Marcelo Lockhart [id number] (Continued) Specimen: [id number] Received: 11/30/19 (Continued) Signed (signature on file) Abbe Rueda MD 12/03/19 1057 Specimen: Received: 11/30/19 Status: BALDO Waddell Num: [id number] Spec Type: Surgical Subm Dr: Pascual Mathews MD Tissues: A VAS DEFERENS - sterilization (RT VAS SEGMENT) B VAS DEFERENS - sterilization (LT VAS SEGMENT) Procedures: ERIKA Stain/2, Gross/Micro L2/2 Patient: Marcelo Lockhart [id number] (Continued) Specimen: Received: 11/30/19 (Continued) Microscopic A. One H E reviewed. B. One H E reviewed. Microscopic examination confirms the diagnosis. CPT Codes 11780 x 2 A. sterilization - RT VAS SEGMENT B. sterilization - LT VAS SEGMENT Specimen: [id number] Received: 11/30/19 Status: BALDO Waddell Num: [id number] Spec Type: Surgical Subm Dr: Pascual Mathews MD Tissues: A VAS DEFERENS - sterilization (RT VAS SEGMENT) B VAS DEFERENS - sterilization (LT VAS SEGMENT) Procedures: ERIKA Stain/2, Gross/Micro L2/2 Patient: Marcelo Lockhart [id number] (Continued) Signed (signature on file) Abbe Rueda MD 12/03/19 1057 [facility] Ambulatory Clinical Summaryo n 10-29-2019 Ambulatory Clinical Summary {[id number]}CD:[id number] Normal [facility] Formson 10-29-2019 Forms [id number] #1.00CD:127 Normal [facility] Patient Educationon 10-29-19 Patient Education Family [...] a vasectomy should be discussed with your health care / medical job titles with you and your partner present. Ask questions and talk about your concerns with your caregiver. Then, you can decide if the operation is safe for you. You can change your mind and cancel the surgery at any time. HOME CARE INSTRUCTIONS ? Only take jaak-igd-lwgczwz or prescription medicines for pain, discomfort or [...] Document Reviewed: 07/09/2008 ExitCare? Patient Information ?2013 [employer]. 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 Pt. unable to give UA [...] When Contact Information AMEENA RITCHIE, Pascual Belle [address] [place] [phone] Additional Instructions: Patient Education Vasectomy I, Radha [...] Use:., 10/29/2019 Family History Anemia: Mother. Normal [facility] Comment on above: Result Comment: Elec tronically Signed By: AMEENA RITCHIE, Pascual Belle\.br\Date and Time Signed: 10/29/19 09:57 EDT\.br\Electronically Co-Signed By: Radha Olivares MA\.br\Date and Time Co-Signed: 10/29/19 09:55 EDT Vital Signs Date Time Vital Sign Value Performing Clinician Doloresi brenda 12-21-2023 14:57-0400 Body weight 107.14 kg Sophia Landrum MD Work Phone: [facility] 11-22-2023 14:17-040 Body height 177.8 cm Deborah Murrieta MD Work Phone: [facility] 11-22-2023 14:17-0400 Body mass index (BMI) [Ratio] 33.86 kg/m2 Deborah Murrieta MD Work Phone: [facility] 11-22-2023 14:17-0400 Body weight 107.05 kg Deborah Murrieta MD Work Phone: [facility] 11-22-2023 14:17-0400 Diastolic blood pressure 85 mm[Hg] Deborah Murrieta MD Work Phone: [facility] 11-22-2023 14:17-0400 Systolic blood pressure 134 mm[Hg] Deborah Murrieta MD Work Phone: [facility] Encounters Encounter Date Encounter Type Care Provider Facility Start: 12-21-2023 End: 12-21-2023 Office consultation new/estab patient 60 min Sophia Landrum MD Work Phone: [facility] Comment on above: Chronic frontal sinu sitis (Primary Dx); Deviated nasal septum; Chronic maxillary sinusitis; Hypertrophy of both inferior nasal turbinates Start: 12-21-2023 End: 12-21-2023 ambulatory SOPHIA LANDRUM [facility] Start: 11-22-2023 End: 11-22-2023 Office outpatient visit 15 minutes Deborah Murrieta MD Work Phone: [facility] Comment on above: Chronic pansinusitis (Primary Dx) Start: 11-22-2023 End: 11-22-2023 ambulatory DEBORAH H TIMMIS Not Available Start: 11-22-2023 End: 11-22-2023 Bamboo flowsheet Deborah Murrieta MD Work Phone: [facility] Start: 11-22-2023 End: 11-22-2023 Bamboo flowsheet Deborah Murrieta MD Work Phone: [facility] Start: 11-10-2023 End: 11-10-2023 ambulatory DEBORAH H TIMMIS Not Available Start: 10-12-2023 End: 10-12-2023 ambulatory DEBORAH H TIMMIS Not Available Start: 01-15-2022 End: 01-16-2022 ambulatory [facility] Start: 01-15-2022 End: 01-15-2022 Subsequent hospital visit by physician Ayan Adler MD Work Phone: [facility] Start: 12-14-2021 End: [address] DOCTOR THURMAN Facility:[facility]1 Start: 11-24-2021 End: 11-25-[address] DOCTOR THURMAN Facility:[facility] Start: 08-28-2021 Emergency department patient visit AYAN ADLER [facility] Start: 01-03-2021 End: 01-03-2021 Subsequent hospital visit by physician Ayan Adler MD Work Phone: [facility] Start: 08-09-2020 End: 08-09-2020 Subsequent hospital visit by physician Aayn Adler MD Work Phone: [facility] Procedures Date Procedure Procedure Detail Performing [...] Treatment Date Care Activity Detail Author Start: 12-16-2027 Zoster Vaccines (1 of 2) Zoste r Vaccines (1 of 2) [facility] Start: 08-09-2025 Lipid panel Lipids [facility] Start: 11-22-2023 End: 11-22-2023 Patient encounter procedure 11/22/2023 2:20 PM EDT Office Visit [facility] [address] [facility] [address] [place] [address] Deborah Murrieta MD [address] [facility] [address] [place] [address] Arrived [facility] Comment on above: Arrived Start: 11-06-2023 COVID-19 Vaccine ( season) COVID-19 Vaccine ( season) [facility] Start: 11-06-2023 Influenza vaccination Influenza Vacc ine (#1) [facility] Start: 10-05-2021 Influenza vaccination Flu vaccine (# 1) [facility] Start: 11-05-2020 [facility] Start: 2012 Diabetes screen Diabetes screen [facility] Start: 12-16-1999 DTaP/Tdap/Td Vaccine s (1 - Tdap) DTaP/Tdap/Td Vaccines (1 - Tdap) [facility] Start: 1996 DTaP/Tdap/Td vaccine (1 - Tdap) DTaP/Tdap/Td vaccine (1 - Tdap) [facility] Start: 1996 Hepatitis B Vaccines (1 of 3 - 19+ 3-dose series) Hepatitis B Vaccines (1 of 3 - 19+ 3-dose series) [facility] Start: 12-16-1995 Diabetes mellitus screening Diabetes Screening [facility] Start: 12-16-1995 Hepatitis C screening B [facility] Start: 1992 HIV screening HIV screen [facility] Start: 1989 COVID-19 Vaccine (1) COVID-19 Vaccin e (1) [facility] [employer] Work Phone: Start: 1989 Depression Screen Depression Screen [facility] Start: 1978 MMR Vaccines (1 of 1 - Standard series) MMR Vaccines (1 of 1 - Standard series) [facility] Start: 06-15-1978 COVID-19 Vaccine (#1) COVID-19 Vacci ne (#1) [employer] Start: 1977 HIV screening HIV Screening [facility] Start: 1977 Lipid panel Lipid Panel [facility] Start: 1977 Screening for malign ant neoplasm of colon [facility] Start: 1977 Yearly Adult Physical Yearly Adult P hysical [facility] End: 01-03-2021 KIRSTEN Screen with Reflex KIRSTEN Screen with Reflex Lab Routine Once for 1 Occurrences starting 01/03/2021 until 01/03/2021 [employer] Phone: Comment on above: Once for 1 Occurrenc es starting 01/03/2021 until 01/03/2021 KIRSTEN Screen with Reflex KIRSTEN Scree n with Reflex Lab Routine 01/03/2021 9:10 AM [employer] Phone: End: 01-03-2021 Flow cytometry leukemia/lymphoma blood Flow cytometry leukemia/lymphoma blood Lab Routine Once for 1 Occurrences starting 01/03/2021 until 01/03/2021 [employer] Phone: Comment on above: Once for 1 Occurrenc es starting 01/03/2021 until 01/03/2021 Flow cytometry leukemia/lymphoma blood Flow cytometry leukemia/lymphoma blood Lab Routine 01/03/2021 9:10 AM [facility] Phone: End: 01-03-2021 Methylmalonic Acid, Serum Methylmalonic Acid, Serum Lab Routine Once for 1 Occurrences starting 01/03/2021 until 01/03/2021 [employer] Phone: Comment on above: Once for 1 Occurrenc es starting 01/03/2021 until 01/03/2021 Methylmalonic Acid, Serum Methylmalonic Acid, Serum Lab Routine 01/03/2021 9:10 AM [facility] Phone: End: 01-15-2022 PSA, free [facility]ON [employer] Phone: Comment on above: Once for 1 Occurrenc es starting 01/15/2022 until 01/15/2022 Payers Date Payer Category Payer Unknown [employer] [id number] 2023-Present [phone] [address] [address] [place] [address] [id number] 2022 Managed Care (Private) [facility] [id number] 2022 Unknown [id number] 1975 Unknown [id number]. [id number] 1975 Unknown [id number]. [id number] 1975 Unknown [id number]. [id number] 1975 Unknown [id number]. [id number] 1977 Unknown [id number]. [id number] 1975 Unknown [id number]. [id number] 1975 Unknown [id number]. 2.1259 1975 Unknown [id number]. [id number] 1959 Unknown [id number] Social History Date Type Detail Facility [facility] ever [facility] [employer] Phone: Start: 1975 Sex Assigned At Not on file [employer] Phone: Start: 08-28-2021 End: 12-21-2023 Tobacco smoking status NHIS Never smoked tobacco [email or web address] Phone: Start: 08-28-2021 End: 10-12-2023 Tobacco use and exposure Smokeless tobacco non-user [email or web address] Phone: Start: 10-12-2023 End: 12-21-2023 History of Social function [facility] Start: 10-12-2023 End: 12-21-2023 Tobacco use panel [facility] Start: 12-11-2023 End: 12-21-2023 Exposure to SARS-CoV-2 (event) Not sure [facility] Start: 10-12-2023 [facility] History of tobacco use Current smoker [facility] History of tobacco use Cigarette Smoker [facility] Start: 10-12-2023 End: 11-22-2023 Alcoholic beverage intake Current drinker of alcohol (finding) [facility] Start: 10-12-2023 Alcohol Comment Socially [facility] History of Present illness Narrative 12-21-2023 Sophia Landrum MD - 12/21/2023 2:15 PM EDT Note Date & Type Note Facility 12-21-2023 History of Present illness Narrative Images from the original note were not included. Sinus & Skull Base Surgery Chief Complaint: Chronic sinusitis History Of Present Illness: Reason For Visit: Marcelo Lockhart presents to me in consultation at the request of Dr. Deborah Murrieta for chronic sinusitis. He has had longstanding sinonasal symptoms but in the summer 2023 he developed a left-sided toothache and was evaluated by dentistry. He was then evaluated by Dr. Murrieta because of findings in his sinuses on imaging. He was treated with additional medical therapy with improvement but then recurrence of symptoms. He was asked to see me to consider surgical options as one of the surgical targets was his left frontal sinus. Main Symptoms: Patient has anterior nasal drainage. Patient has posterior nasal drainage. Patient has nasal airway obstruction. Bilateral. Patient has facial pain. 50% of the time; cheeks and forehead. Patient has facial pressure. 50% of the time; cheeks and forehead. Patient does not have decreased sense of smell. Associated Symptoms: Patient does not have headaches. Patient has throat clearing. Patient has coughing. Patient has dysphonia. Patient does not have nasal bleeding. Medications currently on for sinonasal symptoms: Flonase 1 puff each side BID Zyrtec D BID Medications tried in the past for sinonasal symptoms: Mucinex Antibiotics (multiple courses including Augmentin) Sudafed Zyrtec Motrin Prednisone Other Pertinent Medical Conditions: Patient does not have asthma. Patient does not have aspirin sensitivity. Patient does not have migraines. Patient does not have history of allergy testing. Patient does not have history of sinus surgery. Patient does not have history of nasal fracture. Patient does not have heartburn. The patient does not take medical therapy for heartburn. The patient has imaging of sinuses. When: 2023. The remainder of a full 10 systems review of systems was shafer negative outside of that stated in the history of present illness. Active Problems: Chronic sinusitis. Past Medical History: Prediabetes. Surgical History: Back surgery. Family History: Arthritis, cancer Social History: He reports that he has never smoked. He has never used smokeless tobacco. No history on file for alcohol use and drug use. Allergies: Patient has no known allergies. Current Meds: Current Outpatient Medications: cetirizine-pseudoephedrine (ZyrTEC-D) 5-120 mg 12 hr tablet, Take 1 tablet by mouth 2 times a day., Disp: , Rfl: fluticasone (Flonase) 50 mcg/actuation nasal spray, Administer 1 spray into each nostril 2 times a day. Shake gently. Before first use, prime pump. After use, clean tip and replace cap., Disp: , Rfl: Vitals: Visit Vitals Wt 107 kg (236 lb 3.2 oz) Smoking Status Never Weight: 236 pounds Respirations: 12 Heart rate: 80 Physical Exam: CONSTITUTIONAL: Vitals reviewed in nursing chart, well developed, well nourished. RESPIRATION: Breathing comfortably, no stridor. CV: No clubbing/cyanosis/edema in hands. EYES: EOM Intact, sclera normal. NEURO: Alert and oriented times 3, Cranial nerves 2-12 intact and symmetric bilaterally. HEAD AND FACE: Skin with no masses or lesions, sinuses nontender to palpation. SALIVARY GLANDS: Parotid and submandibular glands normal bilaterally. EARS: Normal external ears, external auditory canals, and TMs to otoscopy, normal hearing to whispered voice. NOSE: External nose midline, anterior rhinoscopy is normal with limited visualization to the anterior aspect of the interior turbinates (see nasal endoscopy). ORAL CAVITY/OROPHARYNX/LIPS: Normal mucous membranes, normal floor of mouth/tongue/OP, no masses or lesions are noted. PHARYNGEAL ESPINAL AND NASOPHARYNX: No masses noted. NECK/LYMPH: No LAD, no thyroid masses. LARYNX: Could not directly visualize transorally. SINONASAL ENDOSCOPY (CPT 43564): To better evaluate the patient's symptoms, sinonasal endoscopy is indicated. After discussion of risks and benefits, and topical decongestion and anesthesia, an endoscope was used to perform nasal endoscopy on each side. A time out identifying the patient, the procedure, the location of the procedure and any concerns was performed prior to beginning the procedure. Findings: Examination of the right nasal cavity revealed inferior turbinate hypertrophy. There was no evidence of purulence or polyposis at the middle meatus or sphenoethmoid recess. Examination of the left nasal cavity revealed inferior turbinate hypertrophy. There was no evidence of purulence or polyposis at the middle meatus or sphenoethmoid recess. He has a septal deviation to the right. Results/Data: I reviewed notes from Dr. Murrieta from October 12, 2023 and November 22, 2023. During the initial evaluation, it was noted that he had a multiyear history of nasal congestion and facial pain and pressure. He has been having dental pain on the left. He was treated with a 4-week course of oral antibiotic therapy, prednisone, topical steroid therapy, and rinses. When he was reassessed, he was referred to me for consideration of surgical options. I personally reviewed his CT sinus from November 10, 2023. This study demonstrated complete opacification of the left frontal. There was also a lesion consistent with a mucous retention cyst or polyp in the left maxillary. There was scattered inflammatory change within each sphenoid and each ethmoid cavity. There was a small lesion in the right maxillary sinus consistent with mucous retention cyst or polyp. Provider Impressions: 1. Chronic sinusitis 2. Nasal airway obstruction, deviated nasal septum, inferior turbinate hypertrophy 3. Rhinorrhea 4. Facial pain and pressure 5. Throat clearing, coughing, dysphonia Discussion: Marcelo Lockhart and I discussed options both medical and surgical. In regard to medical options, he certainly could consider alternative intranasal medical therapy but it would be unlikely that this would improve opacification of the left frontal as topical medical therapy cannot reach that location. It is certainly possible that an opacified sinus can contribute to facial pain and pressure but it is also possible that his discomfort has a non-sinus cause. He has been treated with extended oral antibiotic therapy including a 1 month course of Augmentin as well as a prednisone taper with persistence of symptoms. I would not recommend further oral steroid or oral antibiotic therapy at this point in time. We also discussed surgical options. The patient presents with persistence of symptoms despite adequate medical therapy. The sinus surgery itself was discussed at length. The risks, benefits, and alternatives were explained in detail which include but is not limited to: persistence of symptoms, pain, bleeding, smell loss or alteration, infection, need for nasal packing, double vision, vision loss, CSF leak requiring other procedures to repair, numbness of teeth/and or face, need for revision surgery, and unexpected risks. We discussed septoplasty itself including the risks, benefits and alternatives including but not limited to the following: Numbness of teeth/and or face, alteration in sense of smell or taste, need for further surgery, inability to correct nasal obstruction, bleeding, pain, infection, anesthetic risk, septal perforation and unexpected complications. I also believe that he would benefit from bilateral submucosal inferior turbinate reductions. We discussed timing of surgical intervention particularly around the transition between 2023 and 2024. We also discussed activity limitations in the postoperative setting. I will ask my nurse to reach out to the patient to discuss next steps and if he wishes to schedule the procedure moving forward. If, after consideration, he wishes to consider additional medical options we can certainly discuss this in detail. All questions were answered. Patient Discussion/Summary: Welcome to Dr. Sophia Landrum's clinic. He is an ENT that specializes in nose, sinus, and skull base disorders. Dr. Sophia Landrum's office number is [phone]. Please call this number to contact his care team regardless of which office you use to access care. This number is the most direct way to communicate with all the members of the care team. His care team includes: Warp Hand: Mary Randall Available to receive calls Tuesday through Tuesday from 8:00 am until 4:25 pm She can help you with scheduling of appointments and any general, non-medical questions about the practice Primary nurse: Ehco Love, RN, BSN Available to receive calls Tuesday through Tuesday from 8:00 am until 4:25 pm Echo is also Dr. Landrum's associate professor of surgery and will assist you with planning and scheduling of your surgery during her office hours Alejandra Godoy RN, BSN Available to receive calls Tuesday through from 8:00 am until 4:25 pm Alejandra Roy CNP (sees patients in [place], [facility], and [facility]) Natalia Feng CNP (sees patients in [facility] and [facility]) Nurse practitioners who are part of Dr. Landrum's team. They work collaboratively with Dr. Landrum. If a more urgent appointment is needed they are a wonderful resource. Mikie Perez MD (sees patients in [place] and [facility]) Lidya Rogers MD (sees patients in [facility], [facility], and [place]) Dr. Landrum's partners in the division of Rhinology For your convenience, Dr. Landrum sees patients at [facility] and [facility]. While we try to make your appointments as convenient as possible, occasionally a visit to another location may be necessary to provide the best care for you. We look forward to working with you to meet your healthcare goals. Scribe Attestation By signing my name below, IToño Scribe, attest that this documentation has been prepared under the direction and in the presence of Sophia Landrum MD. Signature: Sophia Landrum MD documented in this encounter [facility] Work Phone: History of Present illness Narrative 11-22-2023 Deborah Murrieta MD - 11/22/2023 2:20 PM EDT Note Date & Type Note Facility 11-22-2023 History of Presen t illness Narrative Subjective Patient ID: Marcelo Lockhart is a 47 y.o. male who presents for Sinusitis (Follow up CT [facility] 11/10/23) Pt reports he initially felt much better, but after stopping abx his sx have recurred. CT sinus shows complete obstruction of the left frontal sinusitis, a large left max ret cyst, and mild diffuse pansinusitis Family History Problem Relation Name Age of Onset Arthritis Mother Cancer Father Active Ambulatory Problems Diagnosis Date Noted Allergic rhinitis 10/10/2023 Obesity 10/10/2023 Iron deficiency anemia 10/10/2023 Lumbago with sciatica, left side 10/10/2023 Lumbar disc herniation with radiculopathy 10/10/2023 Prediabetes 10/10/2023 Acute non-recurrent frontal sinusitis 10/10/2023 Chronic pansinusitis 10/12/2023 Mucous retention cyst of maxillary sinus 10/12/2023 Resolved Ambulatory Problems Diagnosis Date Noted No Resolved Ambulatory Problems Past Medical History: Diagnosis Date Degeneration of intervertebral disc of cervical spine without prolapsed disc Iron deficiency anemia, unspecified iron deficiency anemia type Low HDL (under 40) (CMS/HCC) Lumbar degenerative disc disease Lumbar disc prolapse with compression radiculopathy Lymphocytosis Past Surgical History: Procedure Laterality Date COMBINED LAMINECTOMY AND MICRODISECTOMY OF THORACIC / LUMBAR SPINE 06/06/2020 LAMINECTOMY 01/2007 VASECTOMY 11/2019 No Known Allergies Current Outpatient Medications on File Prior to Visit Medication Sig Dispense Refill Ascorbic Acid (vitamin C) 100 MG tablet Take 100 mg by mouth Daily cetirizine-pseudoephedrine (ZyrTEC-D) 5-120 MG 12 hr tablet Take 1 tablet by mouth in the morning and 1 tablet before bedtime. 60 tablet 11 fluticasone (Flonase) 50 MCG/ACT nasal spray Administer 2 sprays into each nostril Daily Shake gently. Before first use, prime pump. After use, clean tip and replace cap. 48 g 3 guaiFENesin (Mucinex) 600 MG 12 hr tablet Take 1,200 mg by mouth in the morning and 1,200 mg before bedtime. Do not crush, chew, or split.. ibuprofen 800 MG tablet Take 400 mg by mouth every 6 (six) hours if needed for mild pain No current facility-administered medications on file prior to visit. Objective Last Recorded Vitals Vitals: 11/22/23 1417 BP: 134/85 ENT Physical Exam Constitutional Appearance: patient appears well-developed, well-nourished and well-groomed, Communication/Voice: communication appropriate for developmental age; vocal quality normal; Assessment/Plan Diagnoses and all orders for this visit: Chronic pansinusitis Pt has persistent mild pansinusitis, a large left maxillary ret cyst and complete opacification of the left frontal sinus. Looking at the anatomy on the CT, I feel it is best that pt see Dr Landrum for ESS. documented in this encounter [facility] Evaluation note Note Date & Type Note Facility Evaluation note Diagnosis Chronic frontal sinusitis- Primary Deviated nasal septum Chronic maxillary sinusitis Hypertrophy of both inferior nasal turbinates documented in this encounter [facility] Work Phone: Evaluation note Note Date & Type Note Facility Evaluation note Diagnosis Chronic pansinusitis- Primary Other chronic sinusitis documented in this encounter [facility] Summary Purpose Family History No Family History Records FoundNo Family History Records FoundNo Family History Records FoundNo Family History Records FoundNo Family History Records FoundNo Family History Records Found Advance Directives Documents on File Type Date Recorded 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 Expl anation ACP-Advance Directive ACP-Power of Supervisor Garage Additional Source Comments (unrecognized sect ion and content) No Status Records FoundNo Status Records FoundNo Status Records FoundNo Status Records FoundNo Status Records FoundNo Status Records Found INFORMATION SOURCE (unrecogn ized section and content) DATE CREATED AUTHOR 12/07/2019 [facility] DATE CREATED AUTHOR AUTHOR'S ORGANIZ ATION 05/27/2020 [facility] DATE CREATED AUTHOR AUTHOR'S ORGANIZ ATION 2021 [facility] DATE CREATED AUTHOR AUTHOR'S ORGANIZ ATION 01/18/2022 [facility] DATE CREATED AUTHOR AUTHOR'S ORGANIZ ATION 11/24/2023 [facility] EPIC DATE CREATED AUTHOR AUTHOR'S ORGANIZ ATION 01/06/2024 [facility] 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 Teams (unrecognized sec tion and content) Aerospace Engineer Relationship Specialty Start Date End Date Ayan Adler MD [address] [address] PCP - General Family Medicine 08/09/20 Aerospace Engineer Relationship Specialty Start Date End Date Kailyn Avery MD [address] [place] [phone] PCP - General Family Medicine 10/12/23 Soheila Dick MD [address] [place] [address] Referring Physician Family Medicine 09/30/23 Aerospace Engineer Relationship Specialty Start Date End Date Kailyn Avery MD [address] [place] [phone] PCP - General Family Medicine 10/12/23 Soheila Dick MD [address] [place] [address] Referring Physician Family Medicine 09/30/23 Reason for Visit (unrecogniz ed section and content) Reason Comments New Patient Visit Chronic pansinusitis , Large left maxillary retention cyst, Opacification of left frontal sinus Reason Comments Sinusitis Follow up CT [facility] 11/10/23 FOR RECORDS PERTAINING TO PATIENTS WHO ARE [...] BE BASED ON THE PRIMARY CLINICAL RECORDS. [employer] provides no warranty or guarantee of the accuracy or completeness of information in this document.
[2024-02-18 08:49] LABS: Basophils Absolute Auto 0.1 10^3/uL (0.0-0.1); Basophils Percent Auto 1.4 % (0.2-2.0); Eosinophils Absolute Auto 0.3 10^3/uL (0.0-0.7); Eosinophils Percent Auto 4.6 % (0.9-7.0); Hematocrit 40.3 % (42.0-54.0); Immature Granulocytes Abs Auto 0.01 10^3/uL (0.00-0.03); Immature Granulocytes Pct Auto 0.1 % (0.0-0.5); Lymphocytes Absolute Auto 3.3 10^3/uL (1.2-3.8); Lymphocytes Percent Auto 45.9 % (20.5-60.0); Mean Corpuscular HGB Conc 34.7 g/dL (29.9-35.2); Mean Corpuscular Hemoglobin 30.6 pg (25.9-34.0); Mean Corpuscular Volume 88.2 fL (80.0-94.0); Mean Platelet Volume 10.3 fL (9.5-13.5); Monocytes Absolute Auto 0.5 10^3/uL (0.3-0.8); Monocytes Percent Auto 7.6 % (1.7-12.0); Neutrophils Absolute Auto 2.9 10^3/uL (1.4-6.5); Neutrophils Percent Auto 40.4 % (43.0-75.0); Platelet Count 239 10^3/uL (150-450); Red Blood Count 4.57 10^6/uL (4.70-6.10); Red Cell Distribution Width 11.9 % (11.0-15.0); White Blood Count 7.1 10^3/uL (4.0-11.0)
[2024-02-18 09:24] LABS: Estimated Average Glucose 111 mg/dL; Glycohemoglobin A1C 5.5 % (4.5-6.2)
[2024-02-18 09:42] LABS: Alanine Aminotransferase 40 U/L (16-63); Albumin Globulin Ratio 1.1; Albumin Level 3.8 g/dL (3.4-5.0); Alkaline Phosphatase 52 U/L (46-116); Anion Gap 9.8; Aspartate Amino Transferase 17 U/L (15-37); BUN Creatinine Ratio 10.9; Bilirubin Total 1.1 mg/dL (0.2-1.0); Calcium 9.1 mg/dL (8.5-10.1); Carbon Dioxide 30.5 mmol/L (21.0-32.0); Chloride 105 mmol/L (98-107); Chol HDL Ratio 4.2; Cholesterol 181 mg/dL (<=200); Estimated GFR (African America >60 (>=60 mL/min/1.73m^2); Estimated GFR (Non-African Ame >60 (>=60 mL/min/1.73m^2); Free T3 3.01 pg/mL (2.18-3.98); Globulin 3.5 g/dL; Glucose 101 mg/dL (74-106); HDL Cholesterol 43 mg/dL (40-60); LDL Cholesterol Calculated 114.4 mg/dL; Potassium 4.3 mmol/L (3.5-5.1); Sodium 141 mmol/L (136-145); Thyroid Stimulating Hormone 1.348 uIU/mL (0.358-3.740); Total Protein 7.3 g/dL (6.4-8.2); Triglycerides 118 mg/dL (<=150); Uric Acid 5.1 mg/dL (3.5-7.2); VLDL CHOLESTEROL 23.6 mg/dL
[2024-02-18 09:45] LABS: Prostate Specific Antigen Scrn 0.48 ng/mL (<=4.00)
[2024-02-19 10:07] LABS: Insulin 7.4 uIU/mL (2.6-24.9)
== END 2024-02-18 08:30 | disposition home or self-care (01) ==
LOC: LAB 08:33
PROVIDERS: PCP Nurse Practitioner Family; Visit Provider Nurse Practitioner Family
DX: Z00.00 Encounter for general adult medical examination without abnormal findings (principal)
CPT/HCPCS: 36415; 80053; 80061; 83036; 83525; 84436; 84443; 84481; 84550; 85025; G0103

== ENCOUNTER 2025-02-23 08:33 | Outpatient (OUT) | payer OTHER, SELFPAY ==
--- OUTSIDE RECORDS SUMMARY | 2025-02-12 07:14 | XMS_ITS ---
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 [address] [place] [address] 02/12/2025 Soheila Dick Wellness examination Z00.00 Assessments Encounter Date Diagnosis (ICD Code) Assessment Notes Treatment Notes Treatment Clinical Notes Section Notes 02/12/2025 Wellness examination (ICD-10 - Z 00.00) Plan Of Treatment Pending Test Test Name Order Date HEMOGLOBIN A1C (GLYCO) 02/12/2025 INSULIN, TOTAL 02/12/2025 LIPID PANEL (CHOL/TRIG/HDL/LDL) 02/13/20 25 URIC ACID 02/12/2025 THYROID PANEL (T4/TSH/FREE T3) 5 PSA, SCREENING 02/12/2025 CMP (COMP MET ARSHAD) w/eGFR CKD-EPI 2024 CBC WITH DIFF 02/12/2025 Next Appt Details Provider Name:Soheila cerna, 02/25/2025 04:15:00 PM, [address] [place], [address], Progress Notes * Bill CLARK PDOB: [birth year] (49 yo M)Acc No.[id number]:02/12/2025 Patient:?Bill CLARK :1975???Age:49 Y???Sex:MalePhone:[phone] Address:[address] [place] [address], [place], [address] Subjective: * Chief Complaints: * * Medical History: * Surgical History: * Hospitalization/Major Diagno stic Procedure: * Medications: Objective: * Vitals: * Physical Examination: ??? Assessment: * Assessment: 1.?Wellness examination - Z00.00 (Primary)??? Plan: * Treatment: ?LAB: HEMOGLOBIN A1C (GLYCO) ?LAB: INSULIN, TOTAL ?LAB: LIPID PANEL (CHOL/TRIG/HDL/LDL) ?LAB: URIC ACID ?LAB: THYROID PANEL (T4/TSH/FREE T3) ?LAB: PSA, SCREENING ?LAB: CMP (COMP MET ARSHAD) w/eGFR CKD-EPI ?LAB: CBC WITH DIFF * Procedure Codes: * true * Date:?Generated for Printing/Faxing/eTransmitting on:?02/23/2025 08:36 AM EST
--- OUTSIDE RECORDS SUMMARY | 2025-02-23 08:37 | XMS_ITS | Clinical Summary ---
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 Do not crush, chew, or split..Active fluticasone (Flonase) 50 MCG/ACT nasal spray Indications:Chronic pansinusitisAdminister 2 sprays into each nostril Daily Shake gently. Before first use, prime pump. After use, clean tip and replace cap. 48 g ctive cetirizine-pseudoephedrine (ZyrTEC-D) 5-120 MG 12 hr tablet Indications:Chronic pansinusitisTake 1 tablet by mouth in the morning and 1 tablet before bedtime. 60 tablet 1108ctive cetirizine (ZyrTEC ALLERGY) 10 MG tablet 1 (one) time each day at the same timeActive diclofenac (Voltaren) 75 MG EC tablet every 12 (twelve) hours5Active Active Problems ProblemNoted DateDiagnosed DateDeviated nasal pzuabg3404/20/2024hronic gfzvcgdyfhoc71/07/2024Mucous retention cyst of maxillary sinus10/12/2023llergic noqrcdxp44/05/2899Mkormva32/05/2024Iron deficiency abeugx4510/10/2023Lumbago with sciatica, left side10/10/2023Lumbar disc herniation with epexoqgnrqcbx27/05/2024 Lmnigrbesfp43/05/2024cute non-recurrent frontal vpfnasfcb73/05/2024 Encounters DateTypeDepartmentCare JptcMolfhlqqrag07/30/2025 3:40 PM EDTOffice Visit [facility] [address] [facility] [address] [place] [address] Deborah Parson MD Chronic pansinusitis (Primary Dx); DNS (deviated nasal septum); Hypertrophy of both inferior nasal pqfwuhukwu24/30/2025amboo flowsheet [facility] [address] [place] [address] [place] [phone] Deborah Parson MD 12/04/2024Travelfrom Last 3 Months Family History Medical HistoryRelationNameCommentsCancerFatherArthritisMotherRelationNameStatus CommentsBrotherAliveFatherAliveMotherAliveSisterAlive Social History Tobacco UseTypesPacks/DayYears UsedDateSmoking Tobacco: FormerCigarettes Smokeless Tobacco: Never Tobacco Cessation:Counseling Given: Not Answered Alcohol UseStandard Drinks/WeekCommentsYes0 (1 standard drink = 0.6 oz pure alcohol)SociallySex and Gender InformationValueDate RecordedSex Assigned at BirthNot on fileLegal VezTikk8609/30/2023 8:56 AM EDTGender IdentityNot on file Sexual OrientationNot on file Last Filed Vital Signs Vital SignReadingTime TakenCommentsBlood Hltfasht635/7709 3:43 PM EDT Adiek640112/04/2024 3:43 PM EDTTemperature--Respiratory Rate--Oxygen Saturation-- Inhaled Oxygen Concentration--Ptbgih906 kg (235 lb)12/04/2024 3:43 PM EDTHeight 177.8 cm (5' 10 )12/04/2024 3:43 PM EDTBody Mass Index33.72012/04/2024 3:43 PM EDT Plan of Treatment Not on file Insurance * Guarantor: Bill Clark PAccount TypeRelation to PatientDate of BirthPhone Billing AddressPersonal/YytmijUubq24/11/1976 [address] [address] Care Teams Team MemberRelationshipSpecialtyStart DateEnd Date Flip Avery MD [address] [place] [address] PCP - GeneralFamily Medicine11/13/24
--- OUTSIDE RECORDS SUMMARY | 2025-02-23 08:37 | XMS_ITS | Patient Health Record ---
Author Organization [facility] in [place] Address [address] [place] [address] Care Team Providers Care Feeder/Folder Name Role Phone Soheila Dick Primary Care Provider [phone] -Provider, Default Unavailable [phone] Eb Avery Unavailable [phone] Allergies No Known Allergies Reason For Referral No Information Medications Medication SIG (Take, Route, Frequency, Duration) Notes Start Date End Date Status Flonase Allergy Relief 50 MCG/ACT 2 spray in eac h nostril Nasally Once a day PRN ActiveVitamin C1 tablet Orally Once a dayActiveZyrTEC Allergy 10 MG1 tablet Orally Once a dayActiveDiclofenac Sodium 75 MG1 tablet as needed Orally Twice a day; Duration: 30 days5ActivetraMADol HCl 50 MG 1 tablet Orally BID PRN; Duration: 30 days M54.42 PRN15Active Social History Tobacco Use: Social History Observation Description Date Details (start date - stop date) Never Smoker NA - NA Alcohol Screen (Audit-C) Question Answer Notes Did you have a drink containing alcohol in the p ast year? No Xhsaox9HapkwxutpuynehOzivilfsQhmioxi Control (Standard) Question Answer Notes Tobacco use: Nonsmoker AUDIT-C (Standard) Question Answer Notes Did you have a drink containing alcohol in the p ast year? No Tgfgie8KoluzkzwhfzspvGwgbvyrs Problems Problem Type SNOMED Code ICD Code Onset Dates Problem Status W/U Status Risk Notes Problem Sciatica (42561665) Lumbago with sciatica , left side (M54.42) ActiveconfirmedProblemObese class I (finding) (209445575381867)Obesity (BMI 30.0-34.9) (E66.9)ActiveconfirmedProblemLumbar disc prolapse with radiculopathy (388254563)Lumbar disc herniation with radiculopathy (M51.16)Activeconfirmed ProblemChronic sinusitis (93962258)Chronic sinusitis (J32.9)Activeconfirmed ProblemSciatica (01531671)Sciatica (M54.30)ActiveconfirmedProblemIron deficiency anemia (76634790)Iron deficiency anemia, unspecified iron deficiency anemia type (D50.9)ActiveconfirmedProblemAcute frontal sinusitis (68065130)Acute non- recurrent frontal sinusitis (J01.10)ActiveconfirmedProblemSciatica (44598320) Chronic low back pain with sciatica (M54.40)ActiveconfirmedProblemPrediabetes (601709529)Prediabetes (R73.03)ActiveconfirmedProblemAllergic rhinitis (38760244)Allergic rhinitis, unspecified seasonality, unspecified trigger (J30.9)Activeconfirmed Vital Signs Blood pressure diastolic 82 mm Hg 11/19/2024 Tvklky56 in11/19/2024lood pressure jfqouelf662 mm Hg11/19/20247311Djjtff951 lbs 11/19/2024BMI34.43 kg/m211/19/2024 Encounters Encounter Location Date Provider Diagnosis [facility] [address] [place] [address] 03/30/2024 Soheila Mayelin Lumbar disc herniation with radiculopathy M51.16 [facility] [address] [place] [facility] [place] [place] [address] 04/19/2024 Soheila Mayelin Chronic sinusitis J32.9 [facility] [address] [place] [address] 05/16/2024 Soheila Mayelin Lumbar disc herniation with radiculopathy M51.16 [facility] [address] [place] [facility] [place] [place] [address] 06/27/2024 Soheila Mayelin Lumbar disc herniation with radiculopathy M51.16 [facility] [address] [facility] [place] [address] 06/27/2024 Soheila Dick Lumbar disc herniation with radiculopathy M51.16 [facility] [address] [place] [facility] [place] [place] [address] 08/15/2024 Soheila Dick Lumbar disc herniation with radiculopathy M51.16 [facility] [address] [place] [facility] [place] [place] [address] 09/28/2024 Eb Avery Chronic sinusitis J32.9 and Lumbar disc herniation with radiculopathy M51.16 [facility] [address] [facility] [address] 01/02/2025 Soheila Dick Sciatica M54.30 [facility] [address] [place] [address] 01/29/2025 Default -Provider [facility] [facility] [place] [address] 01/29/2025Pamela CramerSciatica M54.30[facility] [facility] [place] [address]/11/2024Pamela CramerWellness examination Z00.00[place] [address] [place] [address]/Pamela CramerSciatica M54.30 and Wellness examination Z00.00 Assessments Encounter Date Diagnosis (ICD Code) Assessment Notes Treatment Notes Treatment Clinical Notes Section Notes 11/19/2024 Sciatica (ICD-10 - M54.30) kenalog 120 imaging if not improving CSA signed OARRS reviewed 11/19/2024Wellness examination (ICD-10 - Z00.00) ROS done exam done labs due in Dec discussed colonoscopy, by 50 03/30/2024Lumbar disc herniation with radiculopathy (ICD-10 - M51.16)04/19/2024 Chronic sinusitis (ICD-10 - J32.9)05/16/2024Lumbar disc herniation with radiculopathy (ICD-10 - M51.16)06/27/2024Lumbar disc herniation with radiculopathy (ICD-10 - M51.16)06/27/2024Lumbar disc herniation with radiculopathy (ICD-10 - M51.16)08/15/2024Lumbar disc herniation with radiculopathy (ICD-10 - M51.16)09/28/2024hronic sinusitis (ICD-10 - J32.9) 01/02/2025Sciatica (ICD-10 - M54.30)01/29/2025Sciatica (ICD-10 - M54.30) 02/12/2025Wellness examination (ICD-10 - Z00.00)09/28/2024Lumbar disc herniation with radiculopathy (ICD-10 - M51.16) Plan Of Treatment Pending Test Test Name Order Date CMP (COMPLETE METABOLIC PANEL) 6 CMP (COMPLETE METABOLIC PANEL) 0 CMP (COMPLETE METABOLIC PANEL) 3 CMP (COMPLETE METABOLIC PANEL) 4 VITAMIN B12 LEVEL (COBALAMIN) 01/31/2019 C. DIFFICILE TOXIN (CD TOX) (STOOL) 10/05 CULTURE, STOOL 10/24/2015 FERRITIN 01/31/2019 FERRITIN 10/23/2019 FOLIC ACID (FOLATE) 01/31/2019 HEMOGLOBIN A1C (GLYCO) 01/10/2024 HEMOGLOBIN A1C (GLYCO) 02/12/2025 HEMOGLOBIN A1C (GLYCO) 06/10/2022 INSULIN, TOTAL 01/10/2024 INSULIN, TOTAL 06/10/2022 INSULIN, TOTAL 02/12/2025 OVA and PARASITES (O and P STOOL) 2015 LIPID PANEL (CHOL/TRIG/HDL/LDL) 01/10/20 24 LIPID PANEL (CHOL/TRIG/HDL/LDL) 02/13/20 25 LIPID PANEL (CHOL/TRIG/HDL/LDL) 06/11/19 23 LIPID PANEL (CHOL/TRIG/HDL/LDL) 10/23/19 20 LIPID PANEL (CHOL/TRIG/HDL/LDL) 09/25/19 16 IRON AND TIBC (WITH SAT) 10/23/2019 IRON AND TIBC (WITH SAT) 01/31/2019 CBC WITH DIFF (EXP 01/2025) 01/10/2024 CBC WITH DIFF (EXP 01/2025) 06/10/2022 CBC WITH DIFF (01/2025) 09/25/2015 CBC WITH DIFF (EXP 01/2025) 10/23/2019 PSA, PROSTATE-SPECIFIC ANTIGEN 3 TSH 10/23/2019 URIC ACID 06/10/2022 URIC ACID 02/12/2025 URIC ACID 01/10/2024 MRI Lumbar Spine w/o contrast 05/05/2020 MRI Lumbar Spine w/o contrast 11/16/2018 PSA, TOTAL 01/10/2024 STOOL OCCULT BLOOD 06/10/2022 THYROID PANEL (T4/TSH/FREE T3) 4 THYROID PANEL (T4/TSH/FREE T3) 5 PSA, SCREENING 02/12/2025 CMP (COMP MET ARSHAD) w/eGFR CKD-EPI 2024 CBC WITH DIFF 02/12/2025 Future Test Test Name Order Date CBC WITH DIFF (EXP 01/2025) 12/02/2015 CBC WITH DIFF (EXP 01/2025) 03/07/2019 COVID 19 SWAB ANTIGEN TEST 05/30/2020 Next Appt Details Provider Name:Soheila cerna, 02/25/2025 04:15:00 PM, [address] [place], [address], Insurance Providers Payer Name Payer Address Payer Phone Subscriber Number Group Number Insured Name Patient Relationship to Insured Coverage Start Date Coverage End Date [employer] [address] [address] [place] [address] [id number] Bill Clark Self - patient is the insured 2 Medications Administered Medication Instructions Date of Administration Dosage Notes Depo-Medrol, 80 mg/mL mLDepo-Medrol, 80 mg/mL08/05/201680 mgDepo-Medrol, 80 mg/mL mLDepo-Medrol, 80 mg/mL mLDepo-Medrol, 80 mg/mL07/21/2017 1 mLDepo-Medrol, 80 mg/mL09/24/85678 mLDepo-Medrol, 80 mg/mL mL Kenalog, 40 mg/mL65618Itwihqtsx Npylhnxjgbux88/01/20214 units Methylprednisolone Acetate 80mg/mL mLMethylprednisolone Acetate 80mg/mL mLToradol 15 mg/0.5mL04/23/201660 mgToradol 15 mg/0.5mL 08/05/201660 mgToradol 15 mg/0.5mL mLToradol 15 mg/0.5mL07/21/201760 mgToradol 15 mg/0.5mL11/28/201760 mgToradol 15 mg/0.5mL mL Triamcinolone 40 mg/ml20 mg Medical (General) History Medical History History ICD Code Lumbar degenerative disc disease M51.36 Lymphocytosis D72.820 Low HDL (under 40) E78.6 Allergic rhinitis, unspecified seasonali ty, unspecified trigger J30.9 Intervertebral disc prolapse with imping ement M51.9 Lumbar disc prolapse with compression ra diculopathy M51.16 Iron deficiency anemia, unspecified iron deficiency anemia type D50.9 Prediabetes R73.03 Former smoker Surgical History Surgery Date(Month/Year) Laminectomy 01/2007 L5-S1 microdisectomy by Dr. Lantigua 1 Sinus Surgery Osboxnqlu4435-BqatHcwskvrkcmtgbgd History Reason Date(Month/Year)
--- OUTSIDE RECORDS SUMMARY | 2025-02-23 08:37 | XMS_ITS | Clinical Summary ---
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 Name Role Phone Mian Adler MD Primary Care Provider [phone] Allergies No known active allergies Medications MedicationSigDispense QuantityRefillsLast FilledStart DateEnd DateStatus methylPREDNISolone (MEDROL, JOSE,) 4 MG tablet Take 4 mg by mouth See Admin Instructions Take by mouth.Active doxycycline hyclate (VIBRAMYCIN) 100 MG capsule Take 100 mg by mouth 2 times dailyActive ketorolac (TORADOL) 10 MG tablet Take 1 tablet by mouth every 8 hours as needed for Pain 15 tablet 08/28/2021ctive baclofen (LIORESAL) 10 MG tablet 2 tablets 3 times a day as needed for spasm 30 tablet 08/28/2021ctive Social History Tobacco UseTypesPacks/DayYears UsedDateSmoking Tobacco: NeverSmokeless Tobacco: NeverSex and Gender InformationValueDate RecordedSex Assigned at BirthNot on fileLegal DjwAudp1704/16/2012 5:43 PM ESTGender IdentityNot on fileSexual OrientationNot on file Last Filed Vital Signs Vital SignReadingTime TakenCommentsBlood Cquulovz141/7806 12:34 PM EDT Hxzcs6002 12:31 PM RSUYwtooytnywr47.9 ??C (96.7 ??F)08/28/2021 12:31 PM EDTRespiratory Sukh2005 12:31 PM EDTOxygen Zmfnglbfss505%08/28/2021 12:31 PM EDTInhaled Oxygen Concentration--Gapccu191.6 kg (235 lb)08/28/2021 12:31 PM GKBHjcsik059.8 cm (5' 10 )08/28/2021 12:31 PM EDTBody Mass Index33.72 08/28/2021 12:31 PM EDT Plan of Treatment Not on file Insurance Care Teams Team MemberRelationshipSpecialtyStart DateEnd Mian Adler MD [address] [address] PCP - GeneralFamily Medicine08/09/20
--- OUTSIDE RECORDS SUMMARY | 2025-02-23 08:37 | XMS_ITS | Clinical Summary ---
Author Organization [facility] Address [address] [place] [address] Phone Care Team Providers Care Cork Cutter Name Role Phone Unavailable Primary Care Provider Unavailabl e Allergies No known active allergies Medications MedicationSigDispense QuantityRefillsLast FilledStart DateEnd DateStatus cetirizine-pseudoephedrine (ZyrTEC-D) 5-120 mg 12 hr tablet Take 1 tablet by mouth 2 times a day.Active fluticasone (Flonase) 50 mcg/actuation nasal spray Administer 1 spray into each nostril 2 times a day. Shake gently. Before first use, prime pump. After use, clean tip and replace cap.Active oxyCODONE-acetaminophen (Percocet) 5-325 mg tablet Indications:Post-operative painTake 1 tablet by mouth every 6 hours if needed for severe pain (7 - 10). 15 tablet 5Active ondansetron ODT (Zofran-ODT) 4 mg disintegrating tablet Indications:NauseaDissolve 1 tablet (4 mg) in the mouth every 8 hours if needed for nausea or vomiting. 20 tablet 5Active predniSONE (Deltasone) 10 mg tablet Indications:Chronic frontal sinusitis,Chronic maxillary qmvbuznxk84sy PO Qday for 3 days, 20mg PO Qday for 3 days, 10 mg PO Qday for 4 days 19 tablet 5Active mometasone furoate, bulk, 100 % powder Indications:Chronic ethmoidal sinusitisCompound 2 mg capsule to be added to sinus rinse twice daily. 180 g 5Active traMADol (Ultram) 50 mg tablet 1 tablet Orally BID PRN for 30 days5Active Active Problems ProblemNoted DateDiagnosed DateChronic frontal hnpmbqfsi42/14/2025Deviated nasal gfuwtw2804/20/2024 Social History Tobacco UseTypesPacks/DayYears UsedDateSmoking Tobacco: FormerCigarettes Smokeless Tobacco: Never Tobacco Cessation:Counseling Given: Not Answered Alcohol UseStandard Drinks/WeekCommentsYes0 (1 standard drink = 0.6 oz pure alcohol)rarelySex and Gender InformationValueDate RecordedSex Assigned at Not on fileLegal MmgGpkg6511/23/2023 7:48 AM EDTGender IdentityNot on fileSexual OrientationNot on file Last Filed Vital Signs Vital SignReadingTime TakenCommentsBlood Mjqxyjsy586/56006/06/2024 4:10 PM EDT Gzgvr2715 4:10 PM WPGDralverydci47.3 ??C (97.3 ??F)06/06/2024 4:10 PM EDTRespiratory Bdez792306/06/2024 4:10 PM EDTOxygen Ljhoawcmcs29%06/06/2024 4:10 PM EDTInhaled Oxygen Concentration--Nkyzod442 kg (234 lb 12.8 oz)09/19/2024 3:21 PM DMDQssxvt229.8 cm (5' 10 )09/19/2024 3:21 PM EDTBody Mass Index33.69 09/19/2024 3:21 PM EDT Plan of Treatment Health MaintenanceDue DateLast DoneCommentsCT Aodnwuutkbws75/11/1978Colonoscopy 1977Colorectal Cancer Ypjlpmlxo99/11/1978FIT-DNA (Cologuard)1977FIT 1977HIV Hrnsxrqbo75/11/1978Lipid Panel1977 8939Gbcjdhrbwzrhd00/11/1978 Yearly Adult Jqudwfww19/11/1978MMR Vaccines (1 of 1 - Standard series)1978 Diabetes Ovigrefrk57/11/1996Hepatitis C Bofyrpzbk24/11/1996Hepatitis B Vaccines (1 of 3 - 19+ 3-dose series)1996DTaP/Tdap/Td Vaccines (1 - Tdap)12/16/1999 COVID-19 Vaccine (1 - 2024- season)2024Influenza Vaccine (#1)2024 Zoster Vaccines (1 of 2)12/16/2027HIB VaccinesAged OutNo longer eligible based on patient's age to complete this topicHPV VaccinesAged OutNo longer eligible based on patient's age to complete this topicHepatitis A VaccinesAged OutNo longer eligible based on patient's age to complete this topicIPV VaccinesAged OutNo longer eligible based on patient's age to complete this topicMeningococcal VaccineAged OutNo longer eligible based on patient's age to complete this topic Pneumococcal Vaccine: Pediatrics and At-Risk Adult PatientsAged OutNo longer eligible based on patient's age to complete this topicRotavirus VaccinesAged Out No longer eligible based on patient's age to complete this topic Medical Devices ImplantedTypeAreaManufacturerDevice IdentifierShelf Expiration DateModel / Serial / LotImplant, [employer] Contour Sinus - [id number] Implanted:Qty: 1 on 06/06/2024 by [facility] ImplantBilateral: NoseINTERSECT [id number] / / [id number] Insurance * Guarantor: Yuan Clark TypeRelation to PatientDate of BirthPhone Billing AddressPersonal/WbceroJfap28/11/1976 [id number] [address] * Guarantor: Yuan Clark TypeRelation to PatientDate of BirthPhone Billing AddressPersonal/GehxluMmxr22/11/1976 [id number] [address]
[2025-02-23 10:24] LABS: Hematocrit 39.5 % (42.0-54.0); Hemoglobin 14.0 g/dL (14.0-18.0); Immature Granulocytes Abs Auto 0.02 10^3/uL (0.00-0.03); Immature Granulocytes Pct Auto 0.3 % (0.0-0.5); Lymphocytes Absolute Auto 3.0 10^3/uL (1.2-3.8); Mean Corpuscular HGB Conc 35.4 g/dL (29.9-35.2); Mean Corpuscular Hemoglobin 31.2 pg (25.9-34.0); Mean Corpuscular Volume 88.0 fL (80.0-94.0); Platelet Count 261 10^3/uL (150-450); Red Blood Count 4.49 10^6/uL (4.70-6.10); White Blood Count 7.7 10^3/uL (4.0-11.0)
[2025-02-23 10:30] LABS: Alanine Aminotransferase 50 U/L (16-63); Albumin Globulin Ratio 1.1; Albumin Level 3.9 g/dL (3.4-5.0); Alkaline Phosphatase 49 U/L (46-116); Anion Gap 10.5; Aspartate Amino Transferase 19 U/L (15-37); Blood Urea Nitrogen 10.0 mg/dL (7.0-18.0); Calcium 9.1 mg/dL (8.5-10.1); Carbon Dioxide 31.4 mmol/L (21.0-32.0); Chloride 104 mmol/L (98-107); Cholesterol 193 mg/dL (<=200); Estimated GFR (African America >60 (>=60 mL/min/1.73m^2); Estimated GFR (Non-African Ame >60 (>=60 mL/min/1.73m^2); Free T3 2.71 pg/mL (2.18-3.98); Globulin 3.4 g/dL; Glucose 92 mg/dL (74-106); HDL Cholesterol 42 mg/dL (40-60); Potassium 3.9 mmol/L (3.5-5.1); Sodium 142 mmol/L (136-145); Thyroid Stimulating Hormone 1.527 uIU/mL (0.358-3.740); Total Protein 7.3 g/dL (6.4-8.2); Triglycerides 101 mg/dL (<=150); Uric Acid 4.6 mg/dL (3.5-7.2); VLDL CHOLESTEROL 20.2 mg/dL
== END 2025-02-23 08:34 | disposition home or self-care (01) ==
LOC: LAB 08:35
PROVIDERS: PCP Nurse Practitioner Family; Visit Provider Nurse Practitioner Family
DX: Z00.00 Encounter for general adult medical examination without abnormal findings (principal); Z12.5 Encounter for screening for malignant neoplasm of prostate
CPT/HCPCS: 36415; 80053; 80061; 83036; 83525; 84436; 84443; 84481; 84550; 85025; G0103